=== PATIENT | female | born 1980 | race Caucasian/White ===

== ENCOUNTER 2020-07-02 10:25 | Outpatient (RCR) | payer BC, MEDICAID, SELFPAY ==
[2020-05-28 11:11] VITALS: BP 128/89; PULSE 102
[2020-06-04 12:07] VITALS: BP 131/92; PULSE 95
[2020-06-11 10:39] VITALS: BP 132/89; PULSE 96
[2020-06-18 12:08] VITALS: BP 133/90; PULSE 111
[2020-06-25 13:04] VITALS: BP 134/87; PULSE 86
--- NOTE | ~2020-07-02 | US_ITS ---
EXAMINATION: US OB limited w BPP DATE: 06/04/2020 11:56 INDICATION: Variable decelerations during third trimester TECHNIQUE: Real-time pelvic ultrasound was performed. The interpreting radiologist was not present fo r the study. COMPARISON: None. FINDINGS: There is a single living fetus in vertex presentation. The placenta is anterior. heart rate is 141 beats per minute (bpm). The amniotic fluid index is 7.8 cm which is low Biophysical profile performed by the technologist: breathing (30 sec sustained breathing in 30 minutes): 2 out of 2 movement (3 gross body movements in 30 minutes): 2 out of 2 tone (one episode of llszwqu-vjdqvmgcm-nfotazj limb movement): 2 out of 2 Amniotic fluid pocket (2 cm): 2 out of 2 Total score: 8 out of 8 IMPRESSION: 1. Single living fetus in vertex presentation. 2. Biophysical profile 8 out of 8. 3. Oligohydramnios. Reviewed, dictated and finalized at location A. K WORKER AND DELIVERER
--- NOTE | ~2020-07-02 | US_ITS ---
EXAMINATION: US OB BPP wo non-stress DATE: 07/02/2020 11:29 INDICATION: Decelerations. Chronic hypertension. Third trimester. TECHNIQUE: Real-time pelvic ultrasound was performed. COMPARISON: Ultrasound 06/05/2020 FINDINGS: There is a single living fetus in vertex presentation. The placenta is anterior. heart rate is 141 beats per minute (bpm). Biophysical profile performed by the technologist: breathing (30 sec sustained breathing in 30 minutes): 2 out of 2 movement (3 gross body movements in 30 minutes): 2 out of 2 tone (one episode of szgruym-qqyzvgunq-fpcfdji limb movement): 2 out of 2 Amniotic fluid pocket (2 cm): 2 out of 2 Total score: 8 out of 8 IMPRESSION: 1. Single living fetus in vertex presentation. 2. Biophysical profile 8 out of 8. Reviewed, dictated and finalized at location A. CARE AIDE
[2020-07-02 11:29] VITALS: BP 134/90; PULSE 98
== END 2020-07-08 07:52 | disposition home or self-care (01) ==
LOC: ANHOBOP 10:25
PROVIDERS: PCP Family Medicine Adolescent Medicine; Visit Provider Obstetrics & Gynecology
DX: O16.3 Unspecified maternal hypertension, third trimester (principal); O41.03X0 Oligohydramnios, third trimester, not applicable or unspecified; Z3A.32 32 weeks gestation of pregnancy; Z3A.33 33 weeks gestation of pregnancy; Z3A.34 34 weeks gestation of pregnancy; Z3A.35 35 weeks gestation of pregnancy; Z3A.36 36 weeks gestation of pregnancy; Z3A.37 37 weeks gestation of pregnancy
CPT/HCPCS: 59025; 76815; 76819

== ENCOUNTER 2020-07-07 04:50 | Inpatient (IN) | payer BC, SELFPAY ==
[2020-07-07] VITALS (77 sets, daily range): BP systolic 103–162; BP diastolic 67–106; PULSE 78–114; RESP 16–18; TEMP 36.6–37.6; O2SAT 98–100; BMI 29.7
--- NOTE | 2020-07-07 04:50 | OBADM ---
This patient, January Palma, admitted to the OB room Labor/Delivery/Recovery 105 for observation. Patient/family oriented to hospital policies and general routines including ID bracelet, bed and alarms, visiting hours, pain management, procedures, bathroom and other care routines, personal items, smoking policy, room service/diet, and visiting hours. Patient/Family are encouraged to report perceived risks to care and to ask questions if they do not understand what they are told or what they should do.
[2020-07-07 05:15] LABS: Basophils Percent Auto 0.5 % (0.2-1.2); Eosinophils Absolute Auto 0.2 K/mm3 (0-0.3); Eosinophils Percent Auto 2.3 % (0-4.4); Hematocrit 33.9 % (37.0-47.0); Hemoglobin 11.7 g/dL (12.0-15.0); Immature Granulocyte Absolute 0.15 K/mm3 (0.00-0.031); Immature Granulocyte Percent A 1.7 % (0-0.5); Lymphocytes Absolute Auto 1.36 K/mm3 (0.9-3.2); Lymphocytes Percent Auto 15.3 % (18.3-44.2); Mean Corpuscular HGB Conc 34.5 g/dl (32-36); Mean Corpuscular Hemoglobin 33.2 pg (26-34); Mean Corpuscular Volume 96.3 fl (80-100); Mean Platelet Volume 9.9 fl (7.4-10.4); Monocytes Absolute Auto 0.5 K/mm3 (0.1-0.6); Monocytes Percent Auto 5.2 % (2.6-8.5); Neutrophils Absolute Auto 6.7 K/mm3 (1.3-6.7); Platelet Count Result 99 k/mm3 (150-375); Red Blood Count 3.52 M/mm3 (4.2-5.4); Red Cell Distribution Width 14.3 % (11.5-14.5); White Blood Count 8.9 K/mm3 (4.5-10.0)
[2020-07-07] MEDS: LACTATED RINGERS 1,000 ML 125 ML IV CONT ×2 (05:19→08:17)
[2020-07-07] MEDS: OXYTOCIN 30 UNITS/NS 500 ML 30 UNITS/500 ML BAG IV CONT (05:20)
[2020-07-07 05:28] LABS: Alanine Aminotransferase 16 U/L (4-35); Albumin Level 3.3 g/dL (3.5-5.1); Alkaline Phosphatase 93 U/L (38-126); Anion Gap 7 mmol/L (8-16); Aspartate Amino Transferase 19 U/L (14-36); Bilirubin,Total 0.3 mg/dL (0.2-1.3); Blood Urea Nitrogen 7 mg/dL (7-17); Calcium 8.1 mg/dL (8.4-10.2); Carbon Dioxide 22 mmol/L (22-30); Chloride 106 mmol/L (98-107); Estimated CRCL calculation 122 ml/min; Estimated Glomerular Filt Rate > 60; Glucose 141 mg/dL (65-105); Potassium 3.5 mmol/L (3.4-5.0); Sodium 135 mmol/L (137-145); Uric Acid 2.4 mg/dL (2.5-7.5)
[2020-07-07] MEDS: LABETALOL HCL 100 MG TABLET 200 MG PO (05:49)
--- NOTE | 2020-07-07 05:49 | PM.IMHP ---
H&P: HPI History of Present Illness Date/Time: 07/07/20 05:49 4 para 2 whose last menstrual period was 2019, EDC is 07/20/2020, confirmed by 6 week ultrasound presents at 38 weeks gestation for induction of labor. She has had worsening blood [place] [address] [place]. There has been good testing with reassuring signs. Chief Complaint: 38 week with gestational hypertension and thrombocytopenia Review of Systems Review of Systems: All systems reviewed & are unremarkable except as noted in HPI and below PMFSH Family History Family History Father Hypertension Social History Social History Smoking status: Never smoker Substance use: never Spiritual care concerns: No Meds Home Medications and Allergies Home Medications Medication Instructions Recorded Confirmed Type PNV cmb#95-ferrous fumarate-FA 1 tablet PO DAILY 05/28/20 07/07/20 History [] docusate sodium [Colace] 100 mg PO DAILY PRN 05/28/20 07/07/20 History labetalol 200 mg PO TID 05/28/20 07/07/20 History nifedipine [Procardia XL] 60 mg PO DAILY 05/28/20 07/07/20 History Allergies Allergy/AdvReac Type Severity Reaction Status Date / Time No Known Allergies Allergy Verified 05/28/20 10:45 Vital Signs Vital Signs - 24 hr 07/07/20 05:15 07/07/20 05:24 07/07/20 05:31 Temperature 98 F Pulse Rate 97 91 Blood Pressure 151/104 H 148/97 H 07/07/20 05:46 Temperature Pulse Rate 100 Blood Pressure 162/99 H Exam Const: General: no acute distress Eyes: General: appearance normal, both eyes and all related structures Neck: Neck: supple and no JVD Thyroid: thyroid normal Resp: Effort & Inspection: normal respiratory effort Auscultation: clear to auscultation bilaterally Cardio: Rate: regular rate Rhythm: regular rhythm GI: Inspection: non-distended GI Palp: Yes Soft to palpation, No Tenderness to palpation present (GI) and No Guarding due to palpation present (GI) Auscultation: normal bowel sounds : External Female Exam: normal external appearance Speculum Exam - Vagina: normal appearance of the vagina Speculum Exam - Cervix: normal appearance of the cervix ( Cervix 3cm by nurse exam. FHTs reassuring) Skin: General skin exam: no rashes or lesions noted Extrem: General: normal to inspection and no edema Psych: Mental Status: mental status grossly normal Affect: normal affect H&P: Results Labs Labs: Short CBC 07/07/20 Range/Units 05:09 WBC 8.9 (4.5-10.0) K/mm3 Hgb 11.7 L (12.0-15.0) g/dL Hct 33.9 L (37.0-47.0) % Plt Count 99 L (150-375) k/mm3 BMP 07/07/20 05:08 Sodium 135 L Potassium 3.5 Chloride 106 Carbon Dioxide 22 BUN 7 Creatinine 0.60 L Glucose 141 H Calcium 8.1 L Liver Function 07/07/20 Range/Units 05:08 Total Bilirubin 0.3 (0.2-1.3) mg/dL AST 19 (14-36) U/L ALT 16 (4-35) U/L Alkaline Phosphatase 93 (38-126) U/L Albumin 3.3 L (3.5-5.1) g/dL Assessment and Plan Additional Plan impression: 38 week with elevated blood pressures and thrombocytopenia Plan: Medical lateral labor. Spontaneous vaginal delivery is expected
--- NOTE | 2020-07-07 06:32 | WPDANESEPP ---
Anes - Eval Pre Procedure Procedure: Labor epidural Date/Time: 07/07/20 06:32 Surgeon: jen Preop Diagnosis: pain during labor Pre Op Diagnosis: Induction of Labor Patient Data Age: 39 Gender: F Height: 1.7 m Weight: 86 kg Last Vital Signs Temp 36.6 C 07/07/20 05:15 Pulse 99 07/07/20 06:31 BP 136/97 H 07/07/20 06:31 Allergies Allergy/AdvReac Type Severity Reaction Status Date / Time No Known Allergies Allergy Verified 05/28/20 10:45 Home Medications Medication Instructions Recorded Confirmed Type PNV cmb#95-ferrous fumarate-FA 1 tablet PO DAILY 05/28/20 07/07/20 History [] docusate sodium [Colace] 100 mg PO DAILY PRN 05/28/20 07/07/20 History labetalol 200 mg PO TID 05/28/20 07/07/20 History nifedipine [Procardia XL] 60 mg PO DAILY 05/28/20 07/07/20 History Laboratory Tests 07/07/20 07/07/20 07/07/20 05:08 05:08 05:09 WBC 8.9 K/mm3 K/mm3 (4.5-10.0) RBC 3.52 M/mm3 L M/mm3 (4.2-5.4) Hgb 11.7 g/dL L g/dL (12.0-15.0) Hct 33.9 % L % (37.0-47.0) MCV 96.3 fl fl (80-100) MCH 33.2 pg pg (26-34) MCHC 34.5 g/dl g/dl (32-36) RDW 14.3 % % (11.5-14.5) Plt Count 99 k/mm3 L k/mm3 (150-375) MPV 9.9 fl fl (7.4-10.4) Immature Gran % (Auto) 1.7 % H % (0-0.5) Neut % (Auto) 75.0 % H % (45.5-73.1) Lymph % (Auto) 15.3 % L % (18.3-44.2) Divide % (Auto) 5.2 % % (2.6-8.5) Eos % (Auto) 2.3 % % (0-4.4) Baso % (Auto) 0.5 % % (0.2-1.2) Lymph # (Auto) 1.36 K/mm3 K/mm3 (0.9-3.2) Divide # (Auto) 0.5 K/mm3 K/mm3 (0.1-0.6) Eos # (Auto) 0.2 K/mm3 K/mm3 (0-0.3) Baso # (Auto) 0.0 K/mm3 K/mm3 (0.0-0.1) Abs Immat Gran (auto) 0.15 K/mm3 H K/mm3 (0.00-0.031) Absolute Neuts (auto) 6.7 K/mm3 K/mm3 (1.3-6.7) Absolute Nucleated RBC 0.0 K/mm3 K/mm3 (0.0-0.012) Nucleated RBC % 0.0 % % (0.0-0.2) Sodium 135 mmol/L L mmol/L (137-145) Potassium 3.5 mmol/L mmol/L (3.4-5.0) Chloride 106 mmol/L mmol/L (98-107) Carbon Dioxide 22 mmol/L mmol/L (22-30) Anion Gap 7 mmol/L L mmol/L (8-16) BUN 7 mg/dL mg/dL (7-17) Creatinine 0.60 mg/dL L mg/dL (0.7-1.0) Estim Creat Clear Calc 122 ml/min ml/min Estimated GFR > 60 (59 - ) Glucose 141 mg/dL H mg/dL (65-105) Uric Acid 2.4 mg/dL L mg/dL (2.5-7.5) Calcium 8.1 mg/dL L mg/dL (8.4-10.2) Total Bilirubin 0.3 mg/dL mg/dL (0.2-1.3) AST 19 U/L U/L (14-36) ALT 16 U/L U/L (4-35) Alkaline Phosphatase 93 U/L U/L (38-126) Total Protein 6.0 g/dL L g/dL (6.3-8.2) Albumin 3.3 g/dL L g/dL (3.5-5.1) RPR Blood Type B Positive Antibody Screen Negative 07/07/20 05:09 WBC RBC Hgb Hct MCV MCH MCHC RDW Plt Count MPV Immature Gran % (Auto) Neut % (Auto) Lymph % (Auto) Divide % (Auto) Eos % (Auto) Baso % (Auto) Lymph # (Auto) Divide # (Auto) Eos # (Auto) Baso # (Auto) Abs Immat Gran (auto) Absolute Neuts (auto) Absolute Nucleated RBC Nucleated RBC % Sodium Potassium Chloride Carbon Dioxide Anion Gap BUN Creatinine Estim Creat Clear Calc Estimated GFR Glucose Uric Acid Calcium Total Bilirubin AST ALT Alkaline Phosphatase Total Protein Albumin RPR Pending Blood Type Antibody Screen Patient hx anesthesia problems: none Family hx anesthesia problems: none PMFSH Past Medical History Medical His
[2020-07-07 07:17] LABS: Rapid Plasma Reagin Non-Reactive (NonReactive)
--- NOTE | 2020-07-07 11:31 | PM.OBPRVD ---
OB - Delivery Note Procedure Delivery date: 07/07/20 Procedure: mil events: Pre-Eclampsia Intrapartal events: None Induction method: AROM Delivery augmentation: pitocin Delivery monitor: external FHT Route of delivery: Episiotomy description: None Laceration Description: None Specimen: No Quantitative Blood Loss (ml): 58 Anesthesia type: Epidural Disposition: floor [place] Baby Date of : 07/07/20 Time of : 11:02 Weeks of gestation at delivery: 38 gender: Male presentation: vertex position: Right Occiput Anterior Placenta delivery description: Spontaneous cord vessel description: 3 Vessels and Nuchal Cord score one minute: 7 score five minutes: 9
[2020-07-07] MEDS: OXYTOCIN 30 UNITS/NS 500 ML 30 UNITS/500 ML BAG 125 UNITS IV CONT (11:39)
[2020-07-07] MEDS: miSOPROStol 200 MCG TABLET 800 MCG RECTAL (12:56)
--- NOTE | 2020-07-07 15:15 | PC.NURSE ---
Patient transferred to post room #286 per wheelchair from labor and delivery. Support person present. Oriented to unit, room, information board, rooming in, admission packet and security measures. Patient verbalizes understanding.
[2020-07-07] MEDS: IBUPROFEN 600 MG TABLET PO (15:29)
[2020-07-07] MEDS: ACETAMINOPHEN 325 MG TABLET 650 MG PO (19:20)
[2020-07-08] VITALS: BP 150/90; PULSE 93; RESP 16; TEMP 37; O2SAT 98
[2020-07-08] MEDS: IBUPROFEN 600 MG TABLET PO ×2 (00:06→08:46)
[2020-07-08 05:20] VITALS: BP 142/95; PULSE 80; RESP 16; TEMP 36.9; O2SAT 99
[2020-07-08] MEDS: ACETAMINOPHEN 325 MG TABLET 650 MG PO (05:23)
[2020-07-08 05:31] LABS: Hemoglobin 10.7 g/dL (12.0-15.0)
[2020-07-08 07:35] VITALS: BP 150/91; PULSE 94; RESP 18; TEMP 37; O2SAT 99
--- NOTE | 2020-07-08 07:51 | PM.OBPNVD ---
OB - PN: Subj Subjective Date/time seen: 07/08/20 07:51 Patient comments: no complaints and pain well controlled baby status: doing well and nursing well OB - PN: Obj Data Labs CBC & Chem 7: 07/08/20 05:07 07/07/20 05:08 Labs: Laboratory Results - last 24 hr 07/08/20 05:07 Hgb 10.7 L Hct 31.0 L OB - PN A/P Plan day: 1 Plan: routine care Time Spent With Patient Time: Total time spent is greater than 50% in coordination of care (as documented) at patient's floor/unit and/or counseling patient: Time with patient: less than 15 minutes Review of Systems Review of Systems: All systems reviewed & are unremarkable except as noted in HPI and below Exam Const: General: no acute distress Eyes: General: appearance normal, both eyes and all related structures Neck: Neck: supple and no JVD Thyroid: thyroid normal Resp: Effort & Inspection: normal respiratory effort Auscultation: clear to auscultation bilaterally Cardio: Rate: regular rate Rhythm: regular rhythm GI: Inspection: non-distended GI Palp: Yes Soft to palpation, No Tenderness to palpation present (GI) and No Guarding due to palpation present (GI) Auscultation: normal bowel sounds : General: Yes bladder normal to palpation External Female Exam: normal external appearance Speculum Exam - Vagina: normal vaginal discharge and No vaginal bleeding Speculum Exam - Cervix: nontender Bimanual exam- vagina & uterus: bladder normal to palpation and No Cervical tenderness present OB/external & speculum: No vaginal bleeding Skin: General skin exam: no rashes or lesions noted Extrem: General: normal to inspection and no edema Psych: Mental Status: mental status grossly normal Affect: normal affect
--- NOTE | 2020-07-08 08:08 | PM.DS ---
DS: Admitting Diagnosis Admitting Diagnosis Admitting Diagnosis: term iup htn DS: Summary Hospital Course Hospital Course: The patient was admitted for induction of labor secondary to elevated blood pressures. She underwent spontaneous vaginal delivery with an epidural. She remained afebrile through her stay . She required no further blood pressure medication. Time Spent with Patient Time attestation: Total time spent providing and/or coordinating discharge services: Exam Const: General: no acute distress Eyes: General: appearance normal, both eyes and all related structures Neck: Neck: supple and no JVD Thyroid: thyroid normal Resp: Effort & Inspection: normal respiratory effort Auscultation: clear to auscultation bilaterally Cardio: Rate: regular rate Rhythm: regular rhythm GI: Inspection: non-distended GI Palp: Yes Soft to palpation, No Tenderness to palpation present (GI) and No Guarding due to palpation present (GI) Auscultation: normal bowel sounds : General: Yes bladder normal to palpation External Female Exam: normal external appearance Speculum Exam - Vagina: normal vaginal discharge and No vaginal bleeding Speculum Exam - Cervix: nontender Bimanual exam- vagina & uterus: bladder normal to palpation and No Cervical tenderness present OB/external & speculum: No vaginal bleeding Skin: General skin exam: no rashes or lesions noted Extrem: General: normal to inspection and no edema Psych: Mental Status: mental status grossly normal Affect: normal affect DS: Data Data Completed and Pending Labs on day of discharge: Labs from last 24 hours 07/08/20 05:07 Hgb 10.7 L Hct 31.0 L Discharge Plan Discharge Attending physician on discharge: Jeremy Rodriguez Discharging Clinician: Jeremy Rodriguez Patient Disposition: Home, Self-Care Activity: may shower and pelvic rest Diet: heart healthy Patient Instructions: Antibiotic Form Stand Alone Forms: General Discharge Information Follow-up/Referrals: Jeremy Rodriguez MD [Physician] - Discharge Medications: Continued labetalol 200 mg Tablet 200 mg PO TID RF: 0 nifedipine [Procardia XL] 30 mg Tablet Extended Release 24hr 60 mg PO DAILY RF: 0 docusate sodium [Colace] 100 mg Capsule 100 mg PO DAILY PRN (Reason: Constipation) RF: 0 PNV cmb#95-ferrous fumarate-FA [] 28 mg iron- 800 mcg Tablet 1 tablet PO DAILY RF: 0 Date of admission: 07/07/20 04:50 Primary Care Provider: Fitz Martínez Admitting Provider: Jeremy Rodriguez Attending physician on admission: Jeremy Rodriguez Condition: Stable
[2020-07-08] MEDS: DOCUSATE SODIUM 100 MG CAPSULE PO (08:46)
--- NOTE | 2020-07-08 09:02 | WPDANLDPN2 ---
Anes-Prog Note L&D Date/Time: 07/08/20 09:02 Comfortable throughout: labor and delivery Neuraxial method: epidural Epidural/Spinal procedure site: clean & non-tender Neuro status: Neuro function grossly intact. Cardiovascular status: normal Respiratory status: normal Airway patency: baseline Mental status: baseline Post-Op hydration status: normal Vital Signs: Last Vital Signs Temp 37.0 C 07/08/20 07:35 Pulse 94 07/08/20 07:35 Resp 18 07/08/20 07:35 BP 150/91 H 07/08/20 07:35 Pulse Ox 99 07/08/20 07:35 Pain score (VAS): 0/10. Patient resting in bed at time of assessment, appears comfortable. Support person at bedside. I/O: Intake & Output 07/07/20 07/08/20 07/08/20 23:59 07:59 15:59 Intake Total 860 Output Total 300 Balance 560 Post-procedural complaints: none Patient feedback: Patient satisfied with anesthetic care.
--- NOTE | 2020-07-08 10:15 | PC.NURSE ---
Consult with pt., mother reports this is third child to breastfeed, last child is 12 yrs old. Mother states has been eager to feed at times, spitty during the night and last feeding was much better. Mother reports tenderness with feedings. Reviewed feeding cues, frequencies, duration of feedings, feeding elimination flow sheet, and signs of adequate intake. Demonstrated stimulation techniques to wake for feeding. Assisted with to breast. Reviewed positioning/alignment cross cradle, holding breast in U hold and guided asymmetrical latch on. Infant was sleepy, several attempts made. Infant just returned from circumcision, suggested skin to skin and attempt again in 30 minutes.
--- NOTE | 2020-07-08 11:00 | PC.NURSE ---
. Demonstrated stimulation techniques to wake for feeding. unwrapped and slight stimulation, easily awoken with feeding cues noted. Assisted with infant to breast. Reviewed positioning/alignment in cross cradle, holding breast in U hold and guided asymmetrical latch on. Infant was able to latch correctly within a few attempts. nursed eagerly, with steady draws and frequent swallowing noted. Reviewed signs of a correct latch, effective nursing and suck swallow ratio. was able to maintain latch. Mother reported tenderness at times, infant had slipped to shallow latch. Demonstrated how to adjust latch more deeply while feeding. Mother quickly reports she has been using the cradle position and can feel infant is latched more deeply and has minimal tenderness. Suggested to stimulate infant while feeding to keep awake and nursing effectively for increased stimulation and increased intake. Instructed mother to call out for RN assistance if she is unable to latch infant for feeding or she has discomfort with nursing. Instructed feeding should be initiated three hours from start of last feeding or if feeding cues are noted before. Mother voiced understanding of information shared.
[2020-07-08] MEDS: TETANUS,DIPHTHERIA,AC PERTUSSIS ADULT (0.5 ML) BOOSTRIX IM (15:19)
[2020-07-09 09:02] VITALS: BP 158/108; PULSE 105; RESP 20; TEMP 37.1; O2SAT 99
== END 2020-07-08 15:35 | disposition home or self-care (01) | DRG 560 ==
LOC: ANHLDR 04:52 → ANHOB2 15:59
PROVIDERS: Admitting Provider Obstetrics & Gynecology; PCP Family Medicine Adolescent Medicine; Visit Provider Obstetrics & Gynecology
DX: O11.4 Pre-existing hypertension with pre-eclampsia, complicating childbirth (principal); Z37.0 Single live birth; Z3A.38 38 weeks gestation of pregnancy; O99.12 Other diseases of the blood and blood-forming organs and certain disorders involving the immune mechanism complicating childbirth; D69.6 Thrombocytopenia, unspecified; O69.81X0 Labor and delivery complicated by cord around neck, without compression, not applicable or unspecified; O36.8330 Maternal care for abnormalities of the fetal heart rate or rhythm, third trimester, not applicable or unspecified
CPT/HCPCS: 36415; 80053; 84550; 85014; 85018; 85025; 86592; 86850; 86900; 86901; 90715; A9270; J2210; J2590; J2795; J7120

== ENCOUNTER 2020-07-18 00:53 | Day surgery (SDC) | payer BC, SELFPAY ==
[2020-07-17 14:44] VITALS: BMI 27.3
--- NOTE | 2020-07-17 15:25 | PM.IMHP ---
H&P: HPI History of Present Illness Date/Time: 07/17/20 15:25 Patient recently delivered and is having bleeding. She notes passing clots and heavy bleeding. She has been dizzy as well she is admitted for suction dilatation curettage. Risks and benefits were reviewed Chief Complaint: pp bleeding Review of Systems Review of Systems: All systems reviewed & are unremarkable except as noted in HPI and below PMFSH Past Medical History Medical History IUP (intrauterine ), incidental PIH ( induced hypertension) Family History Family History Father Hypertension Social History Social History Smoking status: Former smoker Second hand tobacco smoke exposure: No Alcohol intake: never Substance use: never Substance use type: does not use Living arrangements: with family Spiritual care concerns: No Meds Home Medications and Allergies Home Medications Medication Instructions Recorded Confirmed Type PNV cmb#95-ferrous fumarate-FA 1 tablet PO DAILY 05/28/20 07/17/20 History [] docusate sodium [Colace] 100 mg PO DAILY PRN 05/28/20 07/17/20 History labetalol 200 mg PO BID 05/28/20 07/17/20 History Allergies Allergy/AdvReac Type Severity Reaction Status Date / Time No Known Allergies Allergy Verified 07/17/20 14:43 Exam Const: General: no acute distress Eyes: General: appearance normal, both eyes and all related structures Neck: Neck: supple and no JVD Thyroid: thyroid normal Resp: Effort & Inspection: normal respiratory effort Auscultation: clear to auscultation bilaterally Cardio: Rate: regular rate Rhythm: regular rhythm GI: Inspection: non-distended GI Palp: Yes Soft to palpation, No Tenderness to palpation present (GI) and No Guarding due to palpation present (GI) Auscultation: normal bowel sounds : General: Yes bladder normal to inspection External Female Exam: normal external appearance Speculum Exam - Vagina: vaginal bleeding Speculum Exam - Cervix: Cervical os open Bimanual exam- vagina & uterus: enlarged Skin: General skin exam: no rashes or lesions noted Extrem: General: normal to inspection and no edema Psych: Mental Status: mental status grossly normal Affect: normal affect Assessment and Plan Additional Plan impression: bleeding Plan: Suction dilatation and curettage
--- NOTE | 2020-07-18 06:47 | WPDHPUPDATE1 ---
History and Physical Update Update Date/Time: 07/18/20 06:47 History and Physical has been reviewed, including an updated exam of the patient. There are NO changes in the patient's condition. Risks, benefits, and alternatives have been discussed and questions answered. Patient agrees to proceed with procedure.
--- NOTE | 2020-07-18 08:22 | ECG_ITS ---
Measurements Intervals [place] Rate: 85 P: 53 IN: 151 QRS: 38 QRSD: 94 T: 38 QT: 370 QTc: 440 Interpretive Statements SINUS RHYTHM INCOMPLETE RIGHT BUNDLE BRANCH BLOCK BORDERLINE ECG Electronically Signed On 07-18-2020 9:11:00 CDT by Billy Suárez D.O.
[2020-07-18 08:48] VITALS: BP 143/96; PULSE 99; RESP 16; TEMP 36.6; O2SAT 96
[2020-07-18] MEDS: ACETAMINOPHEN 500 MG TABLET 1000 MG PO (09:11)
[2020-07-18] MEDS: LACTATED RINGERS 1,000 ML 30 ML IV CONT (09:23)
[2020-07-18 09:31] LABS: Hematocrit 37.2 % (37.0-47.0); Hemoglobin 12.7 g/dL (12.0-15.0)
--- NOTE | 2020-07-18 09:57 | WPDANESEPPF ---
Anes - Initial Pre Proc Eval Procedure: Operation Date: 07/18/20 10:30 Proposed Procedures p Suction Dilatation and Curettage - Jeremy Rodriguez MD Date/Time: 07/18/20 09:57 Surgeon: Jeremy Rodriguez MD Pre Op Diagnosis: post bleeding Patient Data Age: 39 Gender: F Height: 1.7 m Weight: 76.8 kg Last Vital Signs Temp 36.6 C 07/18/20 08:48 Pulse 99 07/18/20 08:48 Resp 16 07/18/20 08:48 BP 143/96 H 07/18/20 08:48 Pulse Ox 96 07/18/20 08:48 Allergies Allergy/AdvReac Type Severity Reaction Status Date / Time No Known Allergies Allergy Verified 07/18/20 08:57 Home Medications Medication Instructions Recorded Confirmed Type PNV cmb#95-ferrous fumarate-FA 1 tablet PO DAILY 05/28/20 07/18/20 History [] docusate sodium [Colace] 100 mg PO DAILY PRN 05/28/20 07/18/20 History labetalol 200 mg PO BID 05/28/20 07/18/20 History cephalexin 500 mg PO Q12H 07/18/20 07/18/20 History hydrocodone-acetaminophen 1 tablet PO Q6H PRN #14 tablet 07/18/20 Rx Laboratory Tests 07/18/20 08:55 Hgb 12.7 g/dL g/dL (12.0-15.0) Hct 37.2 % % (37.0-47.0) Patient hx anesthesia problems: none Family hx anesthesia problems: none PMFSH Past Medical History Medical History (Updated 07/18/20 @ 09:57 by Selvin Sandhu DO) Anemia Hypertension IUP (intrauterine ), incidental Family History Family History Father Hypertension Social History Social History Smoking status: Former smoker Second hand tobacco smoke exposure: No Alcohol intake: never Substance use: never Substance use type: does not use Living arrangements: with family Spiritual care concerns: No Anes - Eval Final PreProcedure Day of Procedure 07/18/20 09:57 Patient weight: overweight Heart: regular rate and rhythm Lungs: clear to auscultation and normal air movement Airway: Mallampati scale class II Neurological: alert and oriented Last oral intake: >/= 8 hours ASA classification: II Emergent: no Anesthetic plan: proceed Anesthesia type and monitoring: general GIVS and standard monitoring Informed Consent: The patient's anesthetic plan and its attendant risks and benefits were discussed with the patient/family/POA. Questions were solicited and answers provided to the satisfaction of the patient/family/POA.
--- NOTE | 2020-07-18 10:56 | PM.PROC ---
Procedure Note - Detailed Date of procedure: 07/18/20 Pre-op diagnosis: post bleeding Surgeon: Jeremy Rodriguez MD Postop diagnosis: bleeding Procedure: Suction dilatation curettage Anesthesia: IV sedation local EBL: 25cc Findings: Retained tissue Complications: None Description of procedure: The patient was prepped draped in normal sterile fashion placed in the dorsal lithotomy position. Under excellent IV sedation weighted speculum placed in posterior fornix vagina. Anterior lip grasped with a single-tooth tenaculum. 2.5cc of lidocaine 1% was placed. The uterus sounded to 12cm. Serial dilatation with fragmented dilators performed followed by passage of the 10. Suction curette removing a moderate amount of chunky placental tissue. When a good grating sound was heard the instruments were removed. All sponge, needle, instrument counts were correct. There were no immediate complications
[2020-07-18 11:05] VITALS: BP 136/84; PULSE 78; RESP 16; O2SAT 100
[2020-07-18 11:30] VITALS: BP 156/97; PULSE 67; RESP 20
[2020-07-18 12:00] VITALS: BP 159/90; PULSE 68; RESP 14
== END 2020-07-18 12:15 | disposition home or self-care (01) ==
PROVIDERS: PCP Family Medicine Adolescent Medicine; Visit Provider Obstetrics & Gynecology
PROC: (CPT 59160; principal; 2020-07-18 10:30)
DX: O72.2 Delayed and secondary postpartum hemorrhage (principal); Z87.891 Personal history of nicotine dependence
CPT/HCPCS: 59160; 36415; 85014; 85018; 88305; 88307; 93005; A9270; J2250; J2405; J2704; J3010; J7120

== ENCOUNTER 2022-01-11 13:28 | Outpatient (CLI) | payer OTHER, SELFPAY ==
--- NOTE | 2022-01-11 13:30 | ECG_ITS ---
Measurements Intervals [place] Rate: 79 P: 54 NJ: 153 QRS: 55 QRSD: 98 T: 50 QT: 376 QTc: 433 Interpretive Statements SINUS RHYTHM BASELINE ARTIFACT- I, II, III, AVR, AVL, AVF, V4-V6 BORDERLINE ECG COMPARED TO ECG 07/18/2020 09:06:52 NO SIGNIFICANT CHANGES Electronically Signed On 01-11-2022 14:04:28 CDT by Billy Suárez D.O.
== END 2022-01-11 13:29 | disposition home or self-care (01) ==
LOC: ANHSURGERY 13:38
PROVIDERS: PCP Family Medicine Adolescent Medicine; Visit Provider Obstetrics & Gynecology
DX: Z01.818 Encounter for other preprocedural examination (principal); I10 Essential (primary) hypertension; R10.2 Pelvic and perineal pain
CPT/HCPCS: 36415; 86850; 86900; 86901; 93005

== ENCOUNTER 2022-01-15 00:42 | Day surgery (SDC) | payer OTHER, SELFPAY ==
[2022-01-08 09:27] VITALS: BMI 27.6
--- NOTE | 2022-01-08 09:33 | PC.NURSE ---
Report to the Outpatient Waiting Room, entrance under the green pavilion located off [facility], at time 0630__ on date 01/15/22_. OR Time: _0830_. Time changes happen often and if your time is changed the preop area will call you the afternoon before. - You and your visitor will be asked to self-screen and do not enter if you have any COVID symptoms. - Only one visitor and NO children visitors are allowed at this time. - The patient visitor is requested to leave or wait in car when not with patient due to restrictions. - A mask is required within the hospital. Patients may have clear liquids (water, carbonated beverages, clear teas, apple juice) until 3 hours prior to surgery with a maximum of 20 ounces. - No food from midnight until time of surgery - Infants may have breast milk until 4 hours before surgery, infant formula 6 hours prior to surgery. - Children will be allowed to drink immediately following surgery. If applicable, please bring a bottle or sippy cup to assist with drinking. Juice, water, soda, and popsicles are readily available. For infants on formula, please bring formula the day of surgery. Pacifiers are allowed. Take the following medications with a SIP of water the morning of surgery: LABETALOL, PAIN PILL IF NEEDED Medications to discontinue per physician NONE Date to take last dose Please no make-up, nail lithuanian, hairspray, perfume, deodorant, or body powder the day of surgery. No jewelry (including any body piercings) or valuables the day of surgery, leave them at home. Please take a shower or bath the night before, or the morning of, surgery with an antibacterial soap. Wear comfortable, loose fitting clothing. Children are encouraged to wear pajamas. - Jewelry must be removed prior to entering the operating room. Rings and piercings that are not removed may be cut off. - The hospital will not accept responsibility for valuables. - Please leave all valuables, including medications, at home the day of surgery. If you are going home after surgery, a licensed milk tanker driver must drive you home. - NO public transportation without another adult. - We recommend that an adult stay with you for 24 hours following discharge. - We also recommend that you do not drive, make important decision, drink alcoholic beverages, or take any drugs that were not prescribed by your health care provider for at least 24 hours after your discharge time. For Pediatric surgeries, we recommend two adults accompany the child home (only one inside the building at this time). Follow any additional instructions given to you from your surgeon. If you or anyone in your household have experienced Covid symptoms in the past week, please notify your surgeon or the nurse liaison at the phone number below for possible testing. Telephone instructions given to PATIENT_and asked if any additional questions and then verbalized understanding. Patient advised to call surgeon office or pre surgery nurse liaison [phone] if any additional questions.
--- NOTE | 2022-01-13 12:07 | PM.IMHP ---
H&P: HPI History of Present Illness Date/Time: 01/13/22 12:07 Chief Complaint: pelvic pain Narrative: say 5-year-old female admitted for laparoscopy secondary to pelvic pain. She had pain dyspareunia postcoital bleeding. Risks and benefits reviewed including not exclusive of , aspiration, bleeding, transfusion, perforation injury to bowel, bladder, ureters, or other internal organs with the need for open laparotomy. She received the ACOG handout entitled laparoscopy. She had all questions answered. She has received [facility] Past Medical History Medical History Anemia Hypertension IUP (intrauterine ), incidental Family History Family History Father Hypertension Social History Social History Smoking status: Never smoker Second hand tobacco smoke exposure: No Alcohol intake: current Drinks per week: 1 Substance use: never Substance use type: does not use Spiritual care concerns: No Meds Home Medications and Allergies Home Medications Medication Instructions Recorded Confirmed Type labetalol 200 mg tablet 200 mg PO BID 05/28/20 01/08/22 History acetaminophen 300 mg-codeine 30 mg 1 tablet PO PRN PAIN 01/08/22 01/08/22 History tablet doxycycline hyclate 100 mg capsule 100 mg PO BID 01/08/22 01/08/22 History Allergies Allergy/AdvReac Type Severity Reaction Status Date / Time No Known Allergies Allergy Verified 01/08/22 09:23 Exam Const: General: cooperative, healthy appearing and comfortable Nutritional Appearance: average body habitus Orientation/consciousness: oriented to person, oriented to place and oriented to time Chest: Chest palpation & inspection: normal inspection of the chest Resp: Effort & Inspection: normal respiratory effort Cardio: Rate: regular rate Rhythm: regular rhythm Heart sounds: S1 normal heart sound present and S2 normal heart sound present GI: Inspection: normal to inspection Auscultation: normal bowel sounds : Speculum Exam - Cervix: normal appearance of the cervix Bimanual exam- vagina & uterus: enlarged Bimanual Exam- Adnexa, other: tender Assessment and Plan Assessment and plan (1) Pelvic pain: Code(s): R10.2 - Pelvic and perineal pain Status: Acute Plan laparoscopy.
[2022-01-15] VITALS (12 sets, daily range): BP systolic 136–159; BP diastolic 90–114; PULSE 63–89; RESP 12–16; TEMP 36.1–36.8; O2SAT 96–100
--- NOTE | 2022-01-15 06:17 | WPDHPUPDATE1 ---
History and Physical Update Update Date/Time: 01/15/22 06:17 History and Physical has been reviewed, including an updated exam of the patient. There are NO changes in the patient's condition. Risks, benefits, and alternatives have been discussed and questions answered. Patient agrees to proceed with procedure.
--- NOTE | 2022-01-15 07:09 | P.PNAN_ITS ---
Anes - Initial Pre Proc Eval Procedure: Operation Date: 01/15/22 08:30 Proposed Procedures p Diagnostic Laparoscopy, Hysteroscopy Dilatation and Curettage - Jeremy Hebert MD Date/Time: 01/15/22 07:09 Surgeon: Jeremy Hebert MD Pre Op Diagnosis: pelvic pain, post coital bleeding Patient Data Age: 41 Gender: F Height: 1.7 m Weight: 80 kg Allergies Allergy/AdvReac Type Severity Reaction Status Date / Time No Known Allergies Allergy Verified 01/08/22 09:23 Home Medications Medication Instructions Recorded Confirmed Type labetalol 200 mg tablet 200 mg PO BID 05/28/20 01/08/22 History acetaminophen 300 mg-codeine 30 mg 1 tablet PO PRN PAIN 01/08/22 01/08/22 History tablet doxycycline hyclate 100 mg capsule 100 mg PO BID 01/08/22 01/08/22 History hydrocodone 5 mg-acetaminophen 325 1 tablet PO Q4H PRN pain #30 tabs 01/15/22 Rx mg tablet Patient hx anesthesia problems: none Family hx anesthesia problems: none Results Review: All pre-operative results and documents have been reviewed as part of the pre- operative evaluation. [facility] Past Medical History Medical History (Updated 01/15/22 @ 07:10 by Fabio Gatica MD) Anemia Hypertension IUP (intrauterine ), incidental Family History Family History Father Hypertension Social History Social History Smoking status: Never smoker Second hand tobacco smoke exposure: No Alcohol intake: current Drinks per week: 1 Substance use: never Substance use type: does not use Living arrangements: with family Spiritual care concerns: No Anes - Eval Final PreProcedure Day of Procedure 01/15/22 07:09 Patient weight: overweight Heart: regular rate and rhythm Lungs: clear to auscultation and normal air movement Airway: Mallampati scale class II Neurological: alert and oriented Last oral intake: >/= 8 hours ASA classification: II Emergent: no Anesthetic plan: proceed Anesthesia type and monitoring: general ETT and standard monitoring Results Review: All pre-operative results and documents have been reviewed as part of the pre- operative evaluation. Informed Consent: The patient's anesthetic plan and its attendant risks and benefits were discussed with the patient/family/POA. Questions were solicited and answers provided to the satisfaction of the patient/family/POA.
[2022-01-15] MEDS: LACTATED RINGERS 1,000 ML 30 ML IV CONT ×2 (07:13→09:20)
[2022-01-15] MEDS: ACETAMINOPHEN 500 MG TABLET 1000 MG PO (07:17)
[2022-01-15] MEDS: KETOROLAC 15 MG/ML VIAL (*BKC) IV PUSH (07:17)
--- NOTE | 2022-01-15 09:11 | W.PM.PROC2 ---
Procedure Note - Detailed Date of Procedure 01/15/22 Pre-op Diagnosis pelvic pain, post coital bleeding Post-op Diagnosis Same Procedure Performed Laparoscopy with lysis of adhesions /hysteroscopy/ dilatation curettage Surgeon Jeremy Hebert MD Anesthesia General Indications normal-appearing ovaries tubes uterus adhesions from the ovaries to lateral sidewalls Findings normal-appearing ovaries/tubes /uterus. Adhesions from the ovaries the lateral sidewalls Description of Procedure patient was prepped draped in the normal sterile fashion placed in the dorsal lithotomy position. Under excellent general trach anesthesia weighted speculum placed in posterior fornix vagina. Anterior lip of the cervix grasped with a single-tooth tenaculum. The Caraballo's cannula inserted to the cervix and attached to the single-tooth to be used later for the inability uterine manipulation. The bladder was drained of clear urine. The weighted speculum was removed. An infraumbilical incision made and Veress needle passed in the abdomen. Abdomen filled with CO2 gas to 15mm Hg. The 5mm trocar advanced under direct visualization assuring no injury. The patient placed in Trendelenburg and a suprapubic incision made. The 5mm trocar advanced under direct visualization assuring no injury. Adhesions were seen from the ovaries to the lateral sidewalls. These were sharply dissected using monopolar cautery. Irrigation was undertaken no clear. The remainder the pelvis appeared within normal limits and the gas removed from the abdomen. The lower site and upper site removed. The incisions closed with 4 Monocryl and glue. Attention was turned to the hysteroscopic portion the uterus sounded to 9cm. Serial dilatation with fragmented dilators performed followed by passage of the 5mm visualizing hysteroscope using normal saline as visualizing medium. Each fallopian tube os could be seen there was thick irregular endometrium this was scraped over the entire 360? until a good grating sound was heard this was then removed. The instruments were withdrawn. The patient went to recovery in satisfactory condition. All sponge, needle, instrument counts were correct. There were no immediate complications Estimated Blood Loss 5 Drains No Packing No Pathology Yes Complications No immediate complications Condition Stable Disposition PACU
[2022-01-15] MEDS: fentaNYL CITRATE INJ (*CRX) 100 MCG/2 ML VIAL 25 MCG IV PUSH ×4 (09:50→10:34)
[2022-01-15] MEDS: ONDANSETRON INJ 4 MG/2 ML VIAL IV PUSH (10:36)
[2022-01-15] MEDS: oxyCODONE HCL (*CRX) 5 MG TAB IR PO (11:00)
[2022-01-15] MEDS: SCOPOLAMINE 1.5 MG PATCH TRANSDERM (12:04)
[2022-01-15] MEDS: diphenhydrAMINE HCl INJ 50 MG/ML VIAL 25 MG IV PUSH (12:48)
--- NOTE | 2022-01-15 12:50 | SUR.PHASEII ---
pt c/o of chronic migraines, and currently has nausea. pt said her KHOURY is worse than her surgical site pain. neuro grosly intact. walked well to the bathroom well. denies any vision changes. pt was sensitive to light. this nurse called dr perry for medicine for nausea. pt was not due for tylenol and per pt ibu was contraindicated for her BP meds. pt was getting nauseated while she was getting dressed so this nurse got a verbal order for Benadryl.
== END 2022-01-15 13:18 | disposition home or self-care (01) ==
PROVIDERS: PCP Family Medicine Adolescent Medicine; Visit Provider Obstetrics & Gynecology
PROC: 0UDB8ZZ Extraction of Endometrium, Via Natural or Artificial Opening Endoscopic (ICD-10-PCS; CPT 58558; principal; 2022-01-15 08:30)
DX: R10.2 Pelvic and perineal pain (principal); N93.0 Postcoital and contact bleeding; N73.6 Female pelvic peritoneal adhesions (postinfective); N94.10 Unspecified dyspareunia; I10 Essential (primary) hypertension; Z79.891 Long term (current) use of opiate analgesic
CPT/HCPCS: 58660; 58558; 88305; A9270; J0330; J1100; J1200; J1885; J2250; J2405; J2704; J3010; J7030; J7120

== ENCOUNTER 2022-05-24 09:42 | Outpatient (CLI) | payer OTHER, SELFPAY ==
[2022-05-24 10:09] LABS: Basophils Absolute Auto 0.1 K/mm3 (0.0-0.1); Basophils Percent Auto 0.9 % (0.2-1.2); Eosinophils Absolute Auto 0.2 K/mm3 (0-0.3); Eosinophils Percent Auto 4.3 % (0-4.4); Hematocrit 41.5 % (37.0-47.0); Hemoglobin 14.2 g/dL (12.0-15.0); Immature Granulocyte Absolute 0.02 K/mm3 (0.00-0.031); Immature Granulocyte Percent A 0.4 % (0-0.5); Lymphocytes Absolute Auto 1.32 K/mm3 (0.9-3.2); Lymphocytes Percent Auto 23.9 % (18.3-44.2); Mean Corpuscular HGB Conc 34.2 g/dl (32-36); Mean Corpuscular Hemoglobin 32.9 pg (26-34); Mean Corpuscular Volume 96.1 fl (80-100); Mean Platelet Volume 9.8 fl (7.4-10.4); Monocytes Absolute Auto 0.4 K/mm3 (0.1-0.6); Monocytes Percent Auto 6.3 % (2.6-8.5); Neutrophils Absolute Auto 3.6 K/mm3 (1.3-6.7); Neutrophils Percent Auto 64.2 % (45.5-73.1); Platelet Count Result 179 k/mm3 (150-375); Red Blood Count 4.32 M/mm3 (4.2-5.4); Red Cell Distribution Width 12.1 % (11.5-14.5); White Blood Count 5.5 K/mm3 (4.5-10.0)
== END 2022-05-24 09:43 | disposition home or self-care (01) ==
LOC: ANHSURGERY 09:46
PROVIDERS: PCP Family Medicine Adolescent Medicine; Visit Provider Obstetrics & Gynecology
DX: R10.2 Pelvic and perineal pain (principal)
CPT/HCPCS: 36415; 85025; 86850; 86900; 86901

== ENCOUNTER 2022-05-28 01:57 | Day surgery (SDC) | payer OTHER, SELFPAY ==
--- NOTE | 2022-05-18 12:53 | SUR.PREOP ---
Report to the Outpatient Waiting Room, entrance under the green pavilion located off [facility], at time 0930 on date 05/28/22. Planned Procedure Time: 1130. Time changes happen often and if your time is changed the preop area will call you the afternoon before. - You and your visitor will be asked to self-screen and do not enter if you have any COVID symptoms. - Only one visitor is requested with a max of two and NO children visitors are allowed at this time. - The patient visitor may be requested to leave or wait in car when not with patient due to distancing restrictions. - A mask is optional within the hospital at this time. Patients may have clear liquids (water, carbonated beverages, clear teas, apple juice) until 3 hours prior to surgery with a maximum of 20 ounces. - No food from midnight until time of surgery - NO CLEAR LIQUIDS AFTER 0830 - Infants may have breast milk until 4 hours before surgery, infant formula 6 hours prior to surgery. - Children will be allowed to drink immediately following surgery. If applicable, please bring a bottle or sippy cup to assist with drinking. Juice, water, soda, and popsicles are readily available. For infants on formula, please bring formula the day of surgery. Pacifiers are allowed. Take the following medications with a SIP of water the morning of surgery: MAY TAKE TYLENOL WITH CODEINE IF NEEDED DO NOT STOP ANY OF YOUR OTHER PRESCRIPTION MEDICATIONS PRIOR TO SURGERY ?EXCEPT THE FOLLOWING Please no make-up, nail cuban, hairspray, perfume, deodorant, or body powder the day of surgery. No jewelry (including any body piercings) or valuables the day of surgery, leave them at home. Please take a shower or bath the night before, or the morning of, surgery with an antibacterial soap. Wear comfortable, loose fitting clothing. Children are encouraged to wear pajamas. - Jewelry must be removed prior to entering the operating room. Rings and piercings that are not removed may be cut off. - The hospital will not accept responsibility for valuables. - Please leave all valuables, including medications, at home the day of surgery. If you are going home after surgery, a licensed helper driver must drive you home. - NO public transportation without another adult if you receive anesthesia. - We recommend that an adult stay with you for 24 hours following discharge. - We also recommend that you do not drive, make important decision, drink alcoholic beverages, or take any drugs that were not prescribed by your health care provider for at least 24 hours after your discharge time. For Pediatric surgeries, we recommend two adults accompany the child home. Follow any additional instructions given to you from your surgeon. If you or anyone in your household have experienced Covid symptoms in the past week, please notify your surgeon or the nurse liaison at the phone number below for possible testing. Telephone instructions given to TERESA STEWART and asked if any additional questions and then verbalized understanding. Patient advised to call surgeon office or pre surgery nurse liaison [phone] if any additional questions.
[2022-05-18 13:06] VITALS: BMI 27.7
--- NOTE | 2022-05-25 11:36 | PM.IMHP ---
H&P: HPI History of Present Illness Date/Time: 05/25/22 11:36 Chief Complaint: Pelvic pain/uterine prolapse Narrative: Is a 41-year-old female with severe pelvic pain and uterine prolapse. She is unable to exercise without discomfort and unable have sex. She will undergo robotic total vaginal hysterectomy and bilateral salpingectomy. Risks and benefits were reviewed including not exclusive of , aspiration, bleeding, transfusion, perforation a to bowel, bladder, ureters, or other internal organs with need for open laparotomy. She received the [employer]G handout entitled hysterectomy as well as the [facility] [place] handout. She had all questions answered and asked to proceed she did sign the [facility] Past Medical History Medical History Anemia Hypertension IUP (intrauterine ), incidental Family History Family History Father Hypertension Social History Social History Smoking status: Never smoker Second hand tobacco smoke exposure: No Alcohol intake: current Drinks per week: 2 Substance use: never Substance use type: does not use Living arrangements: with family Spiritual care concerns: No Meds Home Medications and Allergies Home Medications Medication Instructions Recorded Confirmed Type acetaminophen 300 mg-codeine 30 mg 1 tablet PO PRN PAIN 01/08/22 05/18/22 History tablet lisinopril 20 mg tablet 20 mg PO DAILY 05/18/22 05/18/22 History Allergies Allergy/AdvReac Type Severity Reaction Status Date / Time No Known Allergies Allergy Verified 05/18/22 13:01 Exam Const: General: cooperative, healthy appearing, comfortable and well groomed Nutritional Appearance: average body habitus Orientation/consciousness: oriented to person, oriented to place and oriented to time Resp: Effort & Inspection: normal respiratory effort Cardio: Rate: regular rate Rhythm: regular rhythm Heart sounds: S1 normal heart sound present and S2 normal heart sound present GI: Inspection: normal to inspection : Speculum Exam - Vagina: normal appearance of the vagina Speculum Exam - Cervix: normal appearance of the cervix (Second-degree prolapse present) Bimanual exam- vagina & uterus: enlarged Bimanual Exam- Adnexa, other: normal adnexae Assessment and Plan Assessment and plan (1) Pelvic pain: Code(s): R10.2 - Pelvic and perineal pain Status: Acute (2) Uterine prolapse: Code(s): N81.4 - Uterovaginal prolapse, unspecified Status: Acute Plan Robotic total vaginal hysterectomy and bilateral salpingectomy
[2022-05-28] VITALS (10 sets, daily range): BP systolic 122–160; BP diastolic 76–104; PULSE 61–87; RESP 15–23; TEMP 36.3–37.1; O2SAT 98–100
--- NOTE | 2022-05-28 06:38 | WPDHPUPDATE1 ---
History and Physical Update Update Date/Time: 05/28/22 06:38 History and Physical has been reviewed, including an updated exam of the patient. There are NO changes in the patient's condition. Risks, benefits, and alternatives have been discussed and questions answered. Patient agrees to proceed with procedure.
--- NOTE | 2022-05-28 07:57 | P.PNAN_ITS ---
Anes - Initial Pre Proc Eval Procedure: Operation Date: 05/28/22 09:30 Proposed Procedures p Robotic Assisted Total Vaginal Hysterectomy with Bilateral Salpingectomy - Jeremy Hebert MD Date/Time: 05/28/22 07:57 Surgeon: Jeremy Hebert MD Pre Op Diagnosis: pelvic pain, uterine prolapse Patient Data Age: 41 Gender: F Height: 1.7 m Weight: 80.4 kg Allergies Allergy/AdvReac Type Severity Reaction Status Date / Time No Known Allergies Allergy Verified 05/28/22 07:46 Home Medications Medication Instructions Recorded Confirmed Type acetaminophen 300 mg-codeine 30 mg 1 tablet PO PRN PAIN 01/08/22 05/28/22 History tablet lisinopril 20 mg tablet 20 mg PO DAILY 05/18/22 05/28/22 History acetaminophen 500 mg tablet 1,000 mg PO Q6H PRN PAIN 05/28/22 05/28/22 History hydrocodone 5 mg-acetaminophen 325 1 tablet PO Q4H PRN pain #30 tabs 05/28/22 Rx mg tablet Patient hx anesthesia problems: none Family hx anesthesia problems: none Results Review: All pre-operative results and documents have been reviewed as part of the pre- operative evaluation. [facility] Past Medical History Medical History Anemia Hypertension IUP (intrauterine ), incidental Surgical History Surgical History (Updated 05/28/22 @ 07:58 by Jeremy Dooley MD) H/O laparoscopy Family History Family History Father Hypertension Social History Social History Smoking status: Never smoker Second hand tobacco smoke exposure: No Alcohol intake: current Drinks per week: 2 Substance use: never Substance use type: does not use Living arrangements: with family Spiritual care concerns: No Anes - Eval Final PreProcedure Day of Procedure 05/28/22 07:57 Patient weight: overweight Heart: regular rate and rhythm Lungs: clear to auscultation Airway: Mallampati scale class II Neurological: alert and oriented Last oral intake: >/= 8 hours ASA classification: II Emergent: no Anesthetic plan: proceed Anesthesia type and monitoring: general ETT and standard monitoring Results Review: All pre-operative results and documents have been reviewed as part of the pre-operative evaluation. Informed Consent: The patient's anesthetic plan and its attendant risks and benefits were discussed with the patient/family/POA. Questions were solicited and answers provided to the satisfaction of the patient/family/POA.
[2022-05-28] MEDS: LACTATED RINGERS 1,000 ML 30 ML IV CONT ×3 (08:20→15:15)
[2022-05-28] MEDS: KETOROLAC 15 MG/ML VIAL (*BKC) IV PUSH (08:21)
--- NOTE | 2022-05-28 09:49 | SUR.PREOP ---
0948-Pt and aware surgeon delays self ~1-1 1/2 hours.
[2022-05-28] MEDS: ACETAMINOPHEN 500 MG TABLET 1000 MG PO (11:34)
--- NOTE | 2022-05-28 14:27 | P.OP_ITS ---
Procedure Note - Detailed Date of Procedure 05/28/22 Pre-op Diagnosis pelvic pain, uterine prolapse Post-op Diagnosis Same Procedure Performed Chronic total vaginal hysterectomy and bilateral salpingectomy Surgeon Jeremy Hebert MD Anesthesia General Indications is a 41-year-old female is chronic pelvic pain and uterine prolapse Findings enlarged uterus with prolapse. Normal-appearing tubes and ovaries. Description of Procedure Patient was prepped draped in the normal sterile fashion placed in dorsal lithotomy position. Under excellent general trach anesthesia weighted speculum placed in posterior fornix vagina. Anterior lip the cervix grasped with single- tooth tenaculum. The uterus sounded to 8cm. Serial dilatation with fragmented dilators performed followed by passage of the 8. ESDRAS and the 3. 0.5 cold cup. Next the 16 Serbian catheter was placed. The gloves were changed. A supraumbilical incision made the Veress needle passed in the abdomen. Abdomen filled with CO2 gas [id number]. The 8mm trocar advanced in the abdomen. Downside visualized no injury seen. Patient placed in Trendelenburg and right left lateral quadrant incision made. 8Mm trocars were then advanced direct v isualization assuring no injury. A right upper quadrant incision made and the trocar advanced under direct visualization. The uterus was noted to be large prolapse. The robot was docked. Attention was turned to the director counseling bureau. The left round ligament grasped, burned, cut. Anterior bladder flap was formed by sharply dissecting the peritoneum and reflecting the bladder caudally from the uterus and cervix to the opposite round ligament was clamped, burned, cut. Next the fallopian tube on the left was removed it was noted be quite long. Serial incisions were made and it was left attached to the uterine origin. The right fallopian tube was dissected away from right ovary and tube and lacked attached to the uterus. The utero-ovarian ligament on the left was skeletonized to conserve the left ovary clamped, burned, cut brought to the level of previously cut round ligament. This was repeated on the contralateral side where the right utero-ovarian ligament was clamped, burned, brought to the level of previously cut round ligament. The cardinal broad ligaments on the left were serially skeletonized clamping burning cutting down the lateral edge of the cervix and uterus until the uterine large tortuous uterine vessels could be seen. These were clamped, burned, cut. In like fashion the cardinal broad ligaments on the right were serially skeletonized clamping burning cutting and hugging the uterus and cervix until the uterine vessels could be seen on the right. These uterine vessels were then individually clamped, burned, cut. The uterus and was noted to roselia in a colpotomy incision was made. Uterus cervix and tubes removed through the vagina. The vagina was then closed with continuous running 0V lock from lateral edge to lateral edge back to the midline. Irrigation undertaken to clear and Critz term placed over the raw surface area to assure hemostasis. Blood loss was estimated 25cc. The robot was undocked and the gas removed from the abdomen. The trocars removed and the incisions closed with 4-0 Monocryl and glue. Patient was awakened and went to recovery in satisfactory condition. All sponge, needle, instrument counts were correct. There were no immediate complications Estimated Blood Loss 25 Drains No Packing No Pathology Yes Complications No immediate complications Condition Stable Disposition PACU
[2022-05-28] MEDS: ONDANSETRON INJ 4 MG/2 ML VIAL IV PUSH ×2 (15:03→16:45)
[2022-05-28] MEDS: SCOPOLAMINE 1.5 MG PATCH TRANSDERM (15:30)
[2022-05-28] MEDS: diphenhydrAMINE HCl INJ 50 MG/ML VIAL 25 MG IV PUSH (15:31)
--- NOTE | 2022-05-28 15:33 | P.DS_ITS ---
DS: Admitting Diagnosis Discharge Date 05/29/2022 Admitting Diagnosis uterine prolapse /pelvic pain DS: Discharge Diagnosis Discharge Diagnosis (1) Uterine prolapse: Code(s): N81.4 - Uterovaginal prolapse, unspecified Status: Acute (2) Pelvic pain: Code(s): R10.2 - Pelvic and perineal pain Status: Acute DS: Summary Hospital Course Reason for hospitalization: the patient was admitted for robotic total vaginal hysterectomy and bilateral salpingectomy Hospital Course: she underwent an unremarkable robotic total vaginectomy and bilateral salpingectomy on 05/28/2022. Her hospital course was unremarkable. She remained afebrile. She was up, voiding difficulty, ambulating, eating regular diet, and generally without complaints. Time Spent with Patient Time attestation: Total time spent providing and/or coordinating discharge services: Exam Const: General: cooperative, healthy appearing and comfortable Nutritional Appearance: average body habitus Orientation/consciousness: oriented to person, oriented to place and oriented to time HENMT: Head: normal to inspection Resp: Effort & Inspection: normal respiratory effort Cardio: Rate: regular rate Rhythm: regular rhythm Heart sounds: S1 normal heart sound present and S2 normal heart sound present GI: Inspection: normal to inspection and incision ( Wounds are clean dry and intact) DS: Data Data Completed and Pending Pending studies at discharge: Pending at discharge 05/28/22 14:13 Surgical [PTH] Routine Discharge Plan Discharge Patient Disposition: Home, Self-Care Discharge Instructions: Call or return if temperature above 100.4? F, increased abdominal pain, inc reased vaginal bleeding or any new problems. Patient Instructions: Hysterectomy (DC) Stand Alone Forms: General Discharge Instructions Follow-up/Referrals: Jeremy Liriano MD [Physician] - 2 Weeks Discharge Medications: New tramadol 50 mg tablet 50 mg PO Q4-6H PRN (Reason: pain) Qty: 30 0RF Continued lisinopril 20 mg tablet 20 mg PO DAILY acetaminophen 500 mg Tablet 1,000 mg PO Q6H PRN (Reason: PAIN) Discontinued acetaminophen-codeine 300-30 mg tablet 1 tablet PO PRN
[2022-05-28] MEDS: fentaNYL CITRATE INJ (*CRX) 100 MCG/2 ML VIAL 25 MCG IV PUSH ×2 (15:51→15:54)
[2022-05-28] MEDS: KETOROLAC 30 MG/ML VIAL (*BKC) IV PUSH (16:45)
[2022-05-28] MEDS: DOCUSATE SODIUM 100 MG CAPSULE PO (22:21)
[2022-05-29 00:06] VITALS: BP 152/101; PULSE 99; RESP 18; TEMP 37.5; O2SAT 99
[2022-05-29 04:48] VITALS: BP 128/83; PULSE 89; RESP 16; TEMP 37.2; O2SAT 97
[2022-05-29] MEDS: traMADol HCL (*CRX) 50 MG TABLET PO ×2 (05:18→09:47)
[2022-05-29 05:36] LABS: Basophils Percent Auto 0.4 % (0.2-1.2); Hematocrit 37.3 % (37.0-47.0); Hemoglobin 12.8 g/dL (12.0-15.0); Immature Granulocyte Absolute 0.06 K/mm3 (0.00-0.031); Immature Granulocyte Percent A 0.6 % (0-0.5); Lymphocytes Absolute Auto 1.09 K/mm3 (0.9-3.2); Lymphocytes Percent Auto 10.5 % (18.3-44.2); Mean Corpuscular HGB Conc 34.3 g/dl (32-36); Mean Corpuscular Volume 96.1 fl (80-100); Mean Platelet Volume 10.2 fl (7.4-10.4); Monocytes Absolute Auto 0.6 K/mm3 (0.1-0.6); Monocytes Percent Auto 6.1 % (2.6-8.5); Neutrophils Absolute Auto 8.6 K/mm3 (1.3-6.7); Neutrophils Percent Auto 82.4 % (45.5-73.1); Platelet Count Result 181 k/mm3 (150-375); Red Blood Count 3.88 M/mm3 (4.2-5.4); Red Cell Distribution Width 11.9 % (11.5-14.5); White Blood Count 10.4 K/mm3 (4.5-10.0)
[2022-05-29 07:30] VITALS: BP 123/74; PULSE 86; RESP 16; TEMP 37.5
--- NOTE | 2022-05-29 09:08 | P.PNAN_ITS ---
Anes - Prog Note Post-Op Date/Time: 05/29/22 09:08 Cardiovascular status: normal Respiratory status: normal Airway patency: baseline Mental status: baseline Post-Op hydration status: normal Vital Signs: Last Vital Signs Temp 37.5 C 05/29/22 07:30 Pulse 86 05/29/22 07:30 Resp 16 05/29/22 07:30 BP 123/74 05/29/22 07:30 Pulse Ox 97 05/29/22 04:48 O2 Del Method Room Air 05/28/22 20:00 O2 Flow Rate 6 05/28/22 14:56 Pain Score (VAS): 3 I/O: Intake & Output 05/28/22 05/29/22 05/29/22 23:59 07:59 15:59 Intake Total 500 Output Total 200 1000 Balance -200 -500 Laboratory Tests 05/29/22 05:12 05/29/22 05:12 WBC 10.4 H RBC 3.88 L Hgb 12.8 Hct 37.3 MCV 96.1 MCH 33.0 MCHC 34.3 RDW 11.9 Plt Count 181 MPV 10.2 Immature Gran % (Auto) 0.6 H Neut % (Auto) 82.4 H Lymph % (Auto) 10.5 L Lanier % (Auto) 6.1 Eos % (Auto) 0.0 Baso % (Auto) 0.4 Lymph # (Auto) 1.09 Lanier # (Auto) 0.6 Eos # (Auto) 0.0 Baso # (Auto) 0.0 Abs Immat Gran (auto) 0.06 H Absolute Neuts (auto) 8.6 H Absolute Nucleated RBC 0.0 Nucleated RBC % 0.0 Post-procedural complaints: none Patient Feedback: Patient satisfied with anesthetic care.n/v last night. improved today
[2022-05-29] MEDS: DOCUSATE SODIUM 100 MG CAPSULE PO (09:46)
[2022-05-29] MEDS: lisinopriL 20 MG TABLET PO (09:47)
[2022-05-29] MEDS: ENOXAPARIN 40 MG/0.4 ML SYRINGE SUB-Q (09:48)
[2022-05-29] MEDS: SIMETHICONE 80 MG TAB.CHEW PO (09:49)
--- NOTE | 2022-05-29 12:20 | PM.GYNPNOP ---
VIDEO PRODUCTION ENGINEER - A/P Assessment and plan (1) Uterine prolapse: Code(s): N81.4 - Uterovaginal prolapse, unspecified Status: Acute Assessment and Plan: A: POD#1, doing well. P: Home to f/u 2 weeks. (2) Pelvic pain: Code(s): R10.2 - Pelvic and perineal pain Status: Acute Postoperative Procedures: Procedures Operation Date: 05/28/22 09:30 Actual Procedure Side Surgeon p Robotic Assisted Total Vaginal Hysterectomy with Bilateral Salpingectomy Bilateral Jeremy Hebert MD Time Spent With Patient Time with patient: less than 15 minutes VIDEO PRODUCTION ENGINEER- PN:Subj Post-Op Subjective Date/time seen: 05/29/22 12:20 Interval history: Pain OK. Tolerating diet. Voiding. Would like to go home. Exam Narrative: AVSS I/O OK ABD soft, nontender. Incisions c/d/i. EXT nontender VIDEO PRODUCTION ENGINEER - PN: Obj Data Vital Signs Vital Signs: Vital Signs - 24 hr 05/28/22 14:43 05/28/22 14:56 05/28/22 15:10 Temperature 36.5 C Pulse Rate 87 80 69 Respiratory Rate 16 23 H 18 Blood Pressure 127/76 123/80 122/78 Pulse Oximetry 100 100 100 Oxygen Delivery Simple Face Mask Simple Face Mask Room Air Oxygen Flow Rate 6 6 05/28/22 15:27 05/28/22 15:40 05/28/22 15:55 Temperature Pulse Rate 78 73 61 Respiratory Rate 17 20 15 Blood Pressure 146/91 H 140/84 137/81 Pulse Oximetry 99 100 98 Oxygen Delivery Room Air Room Air Room Air Oxygen Flow Rate 05/28/22 16:20 05/28/22 16:20 05/28/22 19:40 Temperature 36.3 C L 36.3 C L Pulse Rate 75 61 61 Respiratory Rate 18 15 15 Blood Pressure 157/97 H 157/97 H Pulse Oximetry 100 98 98 Oxygen Delivery Room Air Room Air Oxygen Flow Rate 05/28/22 19:26 05/28/22 20:00 05/29/22 00:06 Temperature 37.1 C 37.5 C Pulse Rate 83 99 Respiratory Rate 18 18 Blood Pressure 160/104 H 152/101 H Pulse Oximetry 100 99 Oxygen Delivery Room Air Oxygen Flow Rate 05/29/22 04:48 05/29/22 07:30 Temperature 37.2 C 37.5 C Pulse Rate 89 86 Respiratory Rate 16 16 Blood Pressure 128/83 123/74 Pulse Oximetry 97 Oxygen Delivery Oxygen Flow Rate Intake/Output Intake/Output: Intake & Output 05/26/22 05/27/22 05/28/22 05/29/22 23:59 23:59 23:59 23:59 Intake Total 1100 500 Output Total 300 1200 Balance 800 -700 Meds/Results Medications: Active Medications Generic Name Dose Route Start Last Admin Trade Name Freq PRN Reason Stop Dose Admin Docusate Sodium 100 mg 05/28/22 17:00 05/29/22 09:46 Docusate Sodium 100 Mg Capsule PO 100 mg BID JULINE Administration Enoxaparin Sodium 40 mg 05/29/22 09:00 05/29/22 09:48 Enoxaparin 40 Mg/0.4 Ml Syringe SUB-Q 40 mg DAILY JULIEN Administration Ibuprofen 600 mg 05/28/22 16:09 Ibuprofen 600 Mg Tablet PO Q6H PRN Cramping Ketorolac Tromethamine 30 mg 05/28/22 16:09 05/28/22 16:45 Ketorolac 30 Mg/Ml Vial (*Bkc) IV PUSH 06/02/22 16:08 30 mg Q6H PRN Administration Pain Rated 4-6 Lisinopril 20 mg 05/29/22 09:00 05/29/22 09:47 Lisinopril 20 Mg Tablet PO 20 mg QAM JULIEN Administration Naloxone HCl 0.1 mg 05/28/22 16:09 Naloxone Hcl 0.4 Mg/Ml Vial IV PUSH Q2M PRN Respiratory rate less than 10 Ondansetron HCl 4 mg 05/28/22 16:09 05/28/22 16:45 Ondansetron Inj 4 Mg/2 Ml Vial IV PUSH 4 mg Q6H PRN Administration Nausea And Vomiting Simethicone 80 mg 05/28/22 16:09 05/29/22 09:49 Simethicone 80 Mg Tab.Chew PO 80 mg Q2H PRN Administration Gas Tramadol HCl 50 mg 05/28/22 19:40 05/29/22 09:47 Tramadol Hcl (*Crx) 50 Mg Tablet PO 50 mg Q4H PRN Administration Pain Rated 4-6 Labs 05/29/22 05:12 Labs: Laboratory Results - last 24 hr 05/29/22 05:12 WBC 10.4 H RBC 3.88 L Hgb 12.8 Hct 37.3 MCV 96.1 MCH 33.0 MCHC 34.3 RDW 11.9 Plt Count 181 MPV 10.2 Immature Gran % (Auto) 0.6 H Neut % (Auto) 82.4 H Lymph % (Auto) 10.5 L Pitkin % (Auto) 6.1 Eos % (A
--- NOTE | 2022-05-29 12:27 | PM.DS ---
DS: Admitting Diagnosis Discharge Date 05/29/22 Admitting Diagnosis Prolapse Pelvic pain DS: Discharge Diagnosis Discharge Diagnosis (1) Pelvic pain: Code(s): R10.2 - Pelvic and perineal pain Status: Acute (2) Uterine prolapse: Code(s): N81.4 - Uterovaginal prolapse, unspecified Status: Acute DS: Summary Hospital Course Hospital Course: Admitted on the date of scheduled surgery. Please see OP note. Did well postoperatively and went home on POD#1. Time Spent with Patient Time attestation: Total time spent providing and/or coordinating discharge services: DS: Data Data Completed and Pending Pending studies at discharge: Pending at discharge 05/28/22 14:13 Surgical [PTH] Routine Labs on day of discharge: Labs from last 24 hours 05/29/22 05:12 WBC 10.4 H RBC 3.88 L Hgb 12.8 Hct 37.3 MCV 96.1 MCH 33.0 MCHC 34.3 RDW 11.9 Plt Count 181 MPV 10.2 Immature Gran % (Auto) 0.6 H Neut % (Auto) 82.4 H Lymph % (Auto) 10.5 L Keith % (Auto) 6.1 Eos % (Auto) 0.0 Baso % (Auto) 0.4 Lymph # (Auto) 1.09 Keith # (Auto) 0.6 Eos # (Auto) 0.0 Baso # (Auto) 0.0 Abs Immat Gran (auto) 0.06 H Absolute Neuts (auto) 8.6 H Absolute Nucleated RBC 0.0 Nucleated RBC % 0.0 Discharge Plan Discharge Patient Disposition: Home, Self-Care Discharge Instructions: Call or return if temperature above 100.4? F, increased abdominal pain, increased vaginal bleeding or any new problems. Stand Alone Forms: General Discharge Instructions Follow-up/Referrals: Jeremy Liriano MD [Physician] - 2 Weeks Discharge Medications: New tramadol 50 mg tablet 50 mg PO Q4-6H PRN (Reason: pain) Qty: 30 0RF Continued lisinopril 20 mg tablet 20 mg PO DAILY acetaminophen 500 mg Tablet 1,000 mg PO Q6H PRN (Reason: PAIN) Discontinued acetaminophen-codeine 300-30 mg tablet 1 tablet PO PRN
== END 2022-05-29 13:28 | disposition home or self-care (01) ==
LOC: ANHSURGERY 15:35 → ANHOB2 16:12
PROVIDERS: PCP Family Medicine Adolescent Medicine; Visit Provider Obstetrics & Gynecology
PROC: (CPT 58260; principal; 2022-05-28 09:30)
DX: N81.4 Uterovaginal prolapse, unspecified (principal); R10.2 Pelvic and perineal pain; I10 Essential (primary) hypertension
CPT/HCPCS: 58260; 36415; 85025; 88307; 99199; A9270; J1100; J1200; J1650; J1885; J2250; J2310; J2405; J2704; J3010; J7030; J7120

== ENCOUNTER 2022-07-21 10:24 | Outpatient (CLI) | payer OTHER, SELFPAY ==
--- NOTE | ~2022-07-21 | US_ITS ---
Pelvic ultrasound. Clinical History: Pelvic pain Technique: Realtime transabdominal and transvaginal scanning of the pelvis was performed. Color flow Doppler and Doppler spectral analysis were performed. Findings: The uterus is absent, compatible prior hysterectomy. The right ovary measures 3.4 x 2.0 x 2.2 cm. No significant right ovarian or adnexal mass is seen. V ascular flow present in the right ovary on Doppler spectral analysis. The left ovary is not visualized. No significant left ovarian or adnexal mass is seen. There is no evidence of free fluid in the cul de sac. Impression: Status post hysterectomy. Right ovary is unremarkable. Left ovary not seen. Reviewed, dictated and finalized at location . Impression: Status post hysterectomy. Right ovary is unremarkable. Left ovary not seen.
== END 2022-07-21 10:25 | disposition home or self-care (01) ==
PROVIDERS: PCP Family Medicine Adolescent Medicine; Visit Provider Obstetrics & Gynecology
DX: R10.2 Pelvic and perineal pain (principal)
CPT/HCPCS: 76830; 76856

== ENCOUNTER 2023-08-09 13:40 | Outpatient (CLI) | payer OTHER, SELFPAY ==
--- NOTE | ~2023-08-09 | CT_ITS ---
CT of the Pelvis: Indication: Pelvic pain Technique: 2.5 mm axial scans were obtained through the pelvis following intravenous administration of 100 cc of Omnipaque 350. Dose reduction technique was used on this scan by utilizing automated exp osure control and iterative reconstruction technique. The dose-length product (DLP) was 608.62 mGy-cm . Findings: Aortic bifurcation and visualized vascular structures are unremarkable. Visualized bowel lo ops are unremarkable. No bowel obstruction identified. Urinary bladder unremarkable. Patient is post hysterectomy. There is a 5.7 x 4.6 cm cystic left ovari an mass with a single apparent septation present. No other adnexal mass seen. No ascites. Impression: 5.7 x 4.6 cm cystic left ovarian mass with single septation. At a minimum, recommend follow-up ultras ound in 6-8 weeks to assess for resolution. Pre and postcontrast MR could be performed if there is co ncern for ovarian neoplasm to better assess for any small soft tissue component. Reviewed, dictated and finalized at [facility]. Impression: 5.7 x 4.6 cm cystic left ovarian mass with single septation. At a minimum, ok mmend follow-up ultrasound in 6-8 weeks to assess for resolution. Pre and postc ontrast MR could be performed if there is concern for ovarian neoplasm to priya r assess for any small soft tissue component.
[2023-08-09 14:00] LABS: Estimated Glomerular Filt Rate > 60
== END 2023-08-09 13:41 | disposition home or self-care (01) ==
LOC: ANHIMG 13:41
PROVIDERS: PCP Family Medicine Adolescent Medicine; Visit Provider Obstetrics & Gynecology
DX: N83.202 Unspecified ovarian cyst, left side (principal)
CPT/HCPCS: 72193; Q9967

== ENCOUNTER 2023-08-31 08:36 | Outpatient (CLI) | payer OTHER, SELFPAY ==
--- NOTE | ~2023-08-31 | CT_ITS ---
CT of the Abdomen and Pelvis: Indication: Umbilical pain Technique: 2.5 mm axial scans were obtained through the abdomen and pelvis following intravenous adm inistration of 100 cc of Omnipaque 350. Dose reduction technique was used on this scan by utilizing a utomated exposure control and iterative reconstruction technique. The dose-length product (DLP) was 4 04.97 mGy-cm. Findings: Scans through the lung bases are unremarkable. The liver, spleen, pancreas, gallbladder, adrenals and kidneys are within normal limits. No evidence of aortic aneurysm. No lymphadenopathy. Visualized bowel loops are unremarkable.. No ascites. Impression: No significant abnormalities seen. Reviewed, dictated and finalized at location . Impression: No significant abnormalities seen.
[2023-08-31 09:09] LABS: Estimated Glomerular Filt Rate > 60
== END 2023-08-31 08:37 | disposition home or self-care (01) ==
PROVIDERS: PCP Family Medicine Adolescent Medicine; Visit Provider Nurse Practitioner
DX: R10.33 Periumbilical pain (principal); R14.0 Abdominal distension (gaseous)
CPT/HCPCS: 74160; Q9967

== ENCOUNTER 2023-09-09 11:08 | Outpatient (CLI) | payer OTHER, SELFPAY ==
--- NOTE | ~2023-09-09 | US_ITS ---
Pelvic ultrasound. Clinical History: Left ovarian cyst follow-up Technique: Realtime transabdominal and transvaginal scanning of the pelvis was performed. Color flow Doppler and Doppler spectral analysis were performed. COMPARISON: 07/21/2022 Findings: The uterus is absent, compatible prior hysterectomy. The right ovary measures 2.8 x 2.8 x 2.6 cm. Simple right ovarian cyst measures 2.4 cm in diameter. The left ovary measures 1.8 x 2.2 x 2.0 cm. No significant left ovarian or adnexal mass is seen. There is no evidence of free fluid in the cul de sac. Impression: 2.4 cm simple right ovarian cyst. Reviewed, dictated and finalized at location . Impression: 2.4 cm simple right ovarian cyst.
== END 2023-09-09 11:09 ==
LOC: GOSHIMG 11:08
PROVIDERS: PCP Family Medicine Adolescent Medicine; Visit Provider Obstetrics & Gynecology
DX: N83.291 Other ovarian cyst, right side (principal)
CPT/HCPCS: 76830; 76856

== ENCOUNTER 2023-09-12 07:19 | Outpatient (NON) | payer OTHER, SELFPAY | END 2023-09-12 07:20 | disposition home or self-care (01) | LOC: ANHLAB 09-13 07:20 | PROVIDERS: PCP Family Medicine Adolescent Medicine; Visit Provider Internal Medicine Gastroenterology | DX: K62.1 Rectal polyp (principal) | CPT/HCPCS: 88305 ==

== ENCOUNTER 2023-09-12 10:43 | Day surgery (SDC) | payer OTHER, SELFPAY ==
[2023-08-29 09:18] VITALS: BMI 29.8
--- NOTE | 2023-09-12 07:19 | WPDANESEPPF ---
Anes - Initial Pre Proc Eval Procedure: Operation Date: 09/12/23 13:00 Proposed Procedures p Diagnostic Colonoscopy - Tahir Galdamez MD Date/Time: 09/12/23 07:19 Surgeon: Tahir Galdamez MD Pre Op Diagnosis: Abdominal distention (gaseous),periumbulical pain Patient Data Age: 42 Gender: F Height: 1.7 m Weight: 86.183 kg Allergies Allergy/AdvReac Type Severity Reaction Status Date / Time No Known Allergies Allergy Verified 09/12/23 11:53 Home Medications Medication Instructions Recorded Confirmed Type lisinopril 10 mg tablet 10 mg PO DAILY #90 tabs 03/30/23 09/12/23 Rx norethindrone (contraceptive) 0.35 0.35 mg PO DAILY #84 tabs 08/10/23 09/12/23 Rx mg tablet (Evlma) gabapentin 100 mg capsule 100 mg PO BID #180 caps 08/15/23 09/12/23 Rx gabapentin 300 mg capsule 600 mg PO QHS #180 caps 08/15/23 09/12/23 Rx meloxicam 15 mg tablet 7.5 - 15 mg PO DAILY PRN pain #90 08/16/23 09/12/23 Rx tabs Daily 1 tab-cap PO DAILY 08/29/23 09/12/23 History Tylenol 1 tab-cap PO DIRECTED 08/29/23 09/12/23 History Patient hx anesthesia problems: none Family hx anesthesia problems: none Results Review: All pre-operative results and documents have been reviewed as part of the pre-operative evaluation. [facility] Past Medical History Medical History Anemia Hypertension IUP (intrauterine ), incidental Surgical History Surgical History H/O laparoscopy History of dilatation and curettage x3 History of hysterectomy Family History Family History Father Hypertension Other Alcoholism Depression Social History Social History Smoking status: Never smoker Second hand tobacco smoke exposure: No Alcohol intake: current Drinks per week: 1 Substance use: never Substance use type: does not use Do You Feel Safe in your Home?: Yes Lack of Transportation: No Lack of Food: Never True Current Housing: I Have Housing Concerned About Future Housing: No Difficulty Paying Gas/Electric Bills: No Difficulty Paying for Meds: No Currently Unemployed: No Education: High School Diploma/GED Difficulty w/ Childcare or Family Care: No Living arrangements: with family Spiritual care concerns: No Comments BP elevated in pre op - discussed with patient I do not feel it necessary to treat at this time because she is relating this to current pain which she has daily which is why we are performing procedure as well as anxiety. Propofol lowers BP and colonoscopy can produce vagal response so we will see how BP is post op. Anes - Eval Final PreProcedure Day of Procedure 09/12/23 07:19 Patient weight: overweight Heart: regular rate and rhythm Lungs: clear to auscultation Airway: Mallampati scale class II Neurological: alert and oriented Last oral intake: >/= 8 hours ASA classification: II Emergent: no Anesthetic plan: proceed Anesthesia type and monitoring: general GIVS and standard monitoring Results Review: All pre-operative results and documents have been reviewed as part of the pre-operative evaluation. Informed Consent: The patient's anesthetic plan and its attendant risks and benefits were discussed with the patient/family/POA. Questions were solicited and answers provided to the satisfaction of the patient/family/POA.
[2023-09-12 11:59] VITALS: BP 174/115; PULSE 82; RESP 17; TEMP 36.7; O2SAT 99
--- NOTE | 2023-09-12 11:59 | PM.HPGS ---
History of Present Illness History of Present Illness Consent: Risks, benefits, and alternatives have been discussed and questions answered. Patient agrees to proceed with procedure. Chief complaint: Abdominal distention (gaseous),periumbulical pain Narrative: January Palma is a 42 year old female Speech due to a suspicion of inflammatory bowel disease. C reactive protein is elevated. She has frequent pelvic pain Review of Systems Review of Systems: All systems reviewed & are unremarkable except as noted in HPI and below PMFSH Past Medical History Medical History Anemia Hypertension IUP (intrauterine ), incidental Surgical History Surgical History H/O laparoscopy History of dilatation and curettage x3 History of hysterectomy Family History Family History Father Hypertension Other Alcoholism Depression Social History Social History Smoking status: Never smoker Second hand tobacco smoke exposure: No Alcohol intake: current Drinks per week: 1 Substance use: never Substance use type: does not use Do You Feel Safe in your Home?: Yes Lack of Transportation: No Lack of Food: Never True Current Housing: I Have Housing Concerned About Future Housing: No Difficulty Paying Gas/Electric Bills: No Difficulty Paying for Meds: No Currently Unemployed: No Education: High School Diploma/GED Difficulty w/ Childcare or Family Care: No Living arrangements: with family Spiritual care concerns: No Meds Home Medications and Allergies Home Medications Medication Instructions Recorded Confirmed Type lisinopril 10 mg tablet 10 mg PO DAILY #90 tabs 03/30/23 09/12/23 Rx norethindrone (contraceptive) 0.35 0.35 mg PO DAILY #84 tabs 08/10/23 09/12/23 Rx mg tablet (Velma) gabapentin 100 mg capsule 100 mg PO BID #180 caps 08/15/23 09/12/23 Rx gabapentin 300 mg capsule 600 mg PO QHS #180 caps 08/15/23 09/12/23 Rx meloxicam 15 mg tablet 7.5 - 15 mg PO DAILY PRN pain #90 08/16/23 09/12/23 Rx tabs Daily 1 tab-cap PO DAILY 08/29/23 09/12/23 History Tylenol 1 tab-cap PO DIRECTED 08/29/23 09/12/23 History Allergies Allergy/AdvReac Type Severity Reaction Status Date / Time No Known Allergies Allergy Verified 09/12/23 11:53 Exam Resp: Auscultation: clear to auscultation bilaterally Cardio: Rate: regular rate Rhythm: regular rhythm GI: GI Palp: Yes Soft to palpation and No Tenderness to palpation present (GI) Assessment and Plan Assessment and plan (1) Abdominal pain: Qualifiers: Abdominal location: periumbilical Qualified Code(s): R10.33 - Periumbilical pain Code(s): R10.9 - Unspecified abdominal pain Status: Acute Assessment and Plan: Colonoscopy with possible biopsy or polypectomy or cautery or injection of substances.
[2023-09-12] MEDS: LACTATED RINGERS 1,000 ML 150 ML IV CONT (12:16)
--- NOTE | 2023-09-12 12:18 | SUR.PREOP ---
Pt's pre-op BP 174/115, 174/117. Pt asymptomatic, has not had BP medication today. Pt states took Lisinopril yesterday. Dr. No notified of pt's BP, no new orders at this time.
[2023-09-12 12:48] VITALS: BP 144/104; PULSE 96; RESP 17; O2SAT 100
[2023-09-12 12:58] VITALS: BP 150/108; PULSE 84; RESP 17; O2SAT 100
[2023-09-12 13:08] VITALS: BP 152/106; PULSE 86; RESP 17; O2SAT 100
--- NOTE | 2023-09-12 13:18 | WPDANESPN ---
Anes - Prog Note Post-Op Date/Time: 09/12/23 13:18 Cardiovascular status: normal Respiratory status: normal Airway patency: baseline Mental status: baseline Post-Op hydration status: normal Vital Signs: Last Vital Signs Temp 36.7 C 09/12/23 11:59 Pulse 86 09/12/23 13:08 Resp 17 09/12/23 13:08 BP 152/106 H 09/12/23 13:08 Pulse Ox 100 09/12/23 13:08 O2 Del Method Room Air 09/12/23 13:08 Pain Score (VAS): 0 I/O: Intake & Output 09/11/23 09/12/23 09/12/23 23:59 07:59 15:59 Intake Total 300 Balance 300 Post-procedural complaints: none Patient Feedback: Patient satisfied with anesthetic care. Other Findings: Patient vital signs back to baseline. Patient denies nausea and vomiting. Patient's pain under control. Patient OK for discharge.
== END 2023-09-12 13:19 | disposition home or self-care (01) ==
PROVIDERS: PCP Family Medicine Adolescent Medicine; Visit Provider Internal Medicine Gastroenterology
PROC: 0DJD8ZZ Inspection of Lower Intestinal Tract, Via Natural or Artificial Opening Endoscopic (ICD-10-PCS; CPT 45378; principal; 2023-09-12 13:00)
DX: R10.2 Pelvic and perineal pain (principal); K62.1 Rectal polyp
CPT/HCPCS: 45380

== ENCOUNTER 2024-10-03 18:31 | Emergency (ER) | payer BC, SELFPAY ==
--- OUTSIDE RECORDS SUMMARY | 2024-10-03 18:33 | XMS_ITS | Clinical Summary ---
Author Organization [facility] Care Team Providers Care Nursery Helper Name Role Phone Unavailable Primary Care Provider Unavailabl e Social History Tobacco Use Types Packs/Day Years Used Date Smoking Tobacco: Never Assessed Comments Unknown Sex and Gender Information Value Date Recorded Sex Assigned at Not on file Legal Sex Female 11:49 AM CDT Gender Identity Not on file Sexual Orientation Not on file Plan of Treatment Health Maintenance Due Date Last Done Comments Hepatitis C Virus (HCV) Screening 1981 Hepatitis B Immunization (1 of 3 - 19+ 3-dose series) 2000 Pap Smear 2002 Cervical Cancer Screening (CCS) 10/23/2011 HPV/Cotest 10/23/2011 Discussion re Starting/Frequency of Mammograms 2021 Influenza Immunization (#1) 2023 SARS-COV-2 Immunization (2023- season) 2023 08/26/2020, 08/03/2020 Respiratory Syncytial Virus (RSV) Immunization (Adult) (1 - 1-dose 75+ series) 2056 DTaP/Tdap/Td Immunization Discontinued 07/08/2020 TdaP Immunization Completed 07/08/2020 Meningococcal Immunization (ACWY) Aged Out No longer eligible based on patient's age to complete this topic Pneumococcal Immunization Combined Aged Out No longer eligible based on patient's age to complete this topic Rotavirus Immunization Aged Out No lo nger eligible based on patient's age to complete this topic
--- OUTSIDE RECORDS SUMMARY | 2024-10-03 18:33 | XMS_ITS | Clinical Summary ---
Author Organization [facility] [employer] Address [address] 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 This disclosure is being madepursuant to the Care Everywhere program and may not contain all information available regarding this patient. Last updated 18.[facility] [employer] Allergies No known active allergies Medications * Be aware that medications may not be up to date on this document. Alwaysverify current medications with the patient. lisinopril (Prinivil; Zestril) 10 MG tablet Take 1 (one) tablet by mouth once daily 4 Active meloxicam (Mobic) 15 MG tablet TAKE 1/2 TO 1 TABLET BY MOUTH DAILY NEEDED FOR PAIN 4 Active pregabalin (Lyrica) 50 MG capsule Take 1 (one) capsule by mouth 2 times daily 5 Active cetirizine (ZyrTEC) 5 MG tablet Take 1 (one) tablet by mouth once daily Active oxyCODONE, immediate release, (Roxicodone) 5 MG tabletIndications :Stress incontinence Take 1 (one) tablet by mouth every 6 hours as needed for Pain 12 tablet 5 10/02/19 25 Discontinu ed(List Clean-Up) Active Problems Problem Noted Date Diagnosed Date Perineal pain 05/11/2023 Encounters Date Type Department Care Team Description 10/01/2024 11:45 AM CDT Office Visit [facility] [address] [place] [phone] Bertram Painting MD Postop check (Primary Dx) 10/01/2024 Travel 08/23/2024 9:00 AM CDT Office Visit [facility] [address] [place] [phone] Asa Dyer Che, MD Post-op pain (Primary Dx); Chronic pelvic pain in female 08/23/2024 Travel 08/22/2024 Telephone [facility] Central[facility] Scheduling [address] [place] [phone] Bertram Painting MD Appointment 08/22/2024 Telephone [facility] [address], [facility] [address] [place] [phone] Bertram Painting MD Bleeding Bruising; Med Question 08/16/2024 7:24 AM CDT Anesthesia Event [facility] [address] [place] [address] Sal Mariee MD Anokhin, Larissa, 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 08/16/2024 7:15 AM CDT - 08/16/2024 8:47 AM CDT Surgery [facility] [address] [place] [address] Bertram Painting MD MIDURETHRAL SLING, CYSTOSCOPY 08/16/2024 5:19 AM CDT - 08/16/2024 11:50 AM CDT Hospital Encounter [facility] [address] [place] [phone] Bertram Painting MD Surgery General Discharge Disposition: Home or Self Care 08/16/2024 Travel 08/10/2024 Travel 07/19/2024 Telephone [facility] [address], [facility] [address] [place] [phone] Bertram Painting MD Request Lab Order 07/16/2024 1:45 PM CDT Office Visit [facility] [address] [place] [address] Bertram Painting MD Stress incontinence (Primary Dx) 07/16/2024 Travel from Last 3 Months Social History Tobacco Use Types Packs/Day Years Used Date Smoking Tobacco: Never Smokeless Tobacco: Never Tobacco Cessation:Counseling Given: Not Answered Alcohol Use Standard Drinks/Week Comments Not Currently 0 (1 standard drink = 0.6 oz pur e alcohol) PHQ-2 Answer Date Recorded Patient Health Questionnaire-2 Score 2 10/01/2024 Comments No Sex and Gender Information Value Date Recorded Sex Assigned at Not on file Legal Sex Female 7:51 AM CDT Gender Identity Not on file Sexual Orientation Not on file Last Filed Vital Signs Vital Sign Reading Time Taken Comments Blood Pressure 126/90 10/01/2024 11:43 AM CDT Pulse 85 08/16/2024 10:00 AM CDT Temperature 36.4 C (97.5 F) 08/16/2024 9:17 AM CDT Respiratory Rate 16 08/16/2024 10:00 AM CDT Oxygen Saturation 98% 08/16/2024 10:00 AM CDT Inhaled Oxygen Concentration - - Weight 88.5 kg (195 lb) 10/01/2024 11:43 AM CDT Height 170.2 cm (5' 7) 10/01/2024 11:43 AM CDT Body Mass Index 30.54 10/01/2024 11:43 AM CDT Plan of Treatment Health Maintenance Due Date Last Done Comments LIPID TESTING 1981 PAP SMEAR 1981 HIV SCREENING 1996 HEPATITIS C SCREENING 10/18/1999 DTAP/TDAP/TD VACCINES (1 - Tdap) 2000 HEPATITIS B VACCINE (1 of 3 - 19+ 3-dose series) 2000 COVID-19 VACCINE (3 - 2023-2 5 season) 2023 08/26/2020, 08/03/2020 INFLUENZA VACCINE (Season Ended) 2024 MAMMOGRAM 10/11/2025 10/12/2023, 10/12/2023 SCREENING FOR DIABETES 08/03/2027 , 12/22/2023 ZOSTER VACCINE (1 of 2) 10/23/2031 DEPRESSION SCREENING Completed 07/16/2024 HIB VACCINE Aged Out No longer eligi ble based on patient's age to complete this topic HPV VACCINE Aged Out No longer eligi ble based on patient's age to complete this topic MENINGOCOCCAL (Group B) VACCINE SHARED DECISION-MAKING Aged Out No longer eligible based on patient's age to complete this topic MENINGOCOCCAL GROUPS A/C/Y/W VACCINE Aged Out No longer eligible b ased on patient's age to complete this topic PNEUMOCOCCAL VACCINE Aged Out No long er eligible based on patient's age to complete this topic Medical Devices Implanted Type Area Cyber Systems Operations Specialist Device Identifier Shelf Expiration Date Model / Serial / Lot Impl Uro Bulkamid Bulk Ureth Strl Lf Implanted:Qty: 1 on 12/29/2023 by Bertram Painting MD at [facility] N/A: Urethra [employer] 06/22/2025 [id number] / / [id number] Sys Ureth Supp Arian Lynx Adv Trnvg Implanted:Qty: 1 on 08/16/2024 by Bertram Painting MD at [facility] N/A: Urethra [employer] 07/12/2026 [id number] / / [id number] Procedures Procedure Name Priority Date/Time Associated Diagnosis Comments CARDIAC RHYTHM STRIP ORDER 08/17/2024 8:37 PM CDT LARYNGEAL MASK AIRWAY Routine 08/16/2024 7:42 AM CDT ID SLING OPER STRES INCONTINENCE 08/16/2024 6:41 AM CDT Diagnosis unknown Special Needs NEEDS [employer] BLUE SLING LAB RESULTS ORDER 08/02/2024 LAB RESULTS ORDER 08/02/2024 ID INSERT NON-INDWELLING BLADDER Routine 07/16/2024 5:06 PM CDT Stress incontinence from Last 3 Months Results * CARDIAC RHYTHM STRIP ORDER (08/17/2024 8:37 PM CDT) Narrative 08/17/2024 8:37 PM CDT Ordered by an unspecified provider. us Scanned Document CARDIAC SERVICES ORDERABLES Fin al Result * LARYNGEAL MASK AIRWAY (08/16/2024 7:42 AM CDT) Narrative Raphael Delgadillo APRN-CRNA - 08/16/2024 7:42 AM CDT Raphael Delgadillo APRN-CRNA 08/16/2024 7:42 AM LMA Placement Procedure/LDA Note: Patient Location: OR. LMA Insertion Date/Time: 08/16/2024 7:32 AM Procedure: LMA Pretreatment: 100% O2 Induction: standard IV Type: LMA Size: 4 Number of Attempts: 1. Placement verified by: CO2 monitor Dentition unchanged? Yes Procedure Start Time: 08/16/2024 7:32 AM. Staff Section Anesthesia Provider: Raphael Delgadillo APRN-CRNA, Performed the procedure us Sal Mariee MD GENERAL ANESTHESIA ORDERABL ES Final Result * LAB RESULTS ORDER (08/02/2024) Only the most recent of2 resultswithin the time period is included. 08/02/2024 Narrative 08/02/2024 Ordered by an unspecified provider. us Scanned Document LAB - THERAPEUTIC DRUG MONITORI NG ORDERABLES Final Result * ID INSERT NON-INDWELLING BLADDER (07/16/2024 5:06 PM CDT) Narrative Bertram Painting MD - 07/16/2024 5:06 PM CDT Bertram Painting MD 07/16/2024 5:07 PM Straight catheterization was performed after swabbing the urethra with betadine. A 14 Fr urethral catheter was inserted without difficulty and the bladder was drained. The patient tolerated the procedure well. us Bertram Painting MD PROCEDURE/MINOR SURGICAL ORDERABLES Final Result from Last 3 Months Insurance ANTH * Guarantor: JANUARY PALMA Account Type Relation to Patient Date of Phone Billing Address Personal/Family [address] [place] [address] * Guarantor: AJNUARY PALMA Account Type Relation to Patient Date of Phone Billing Address Personal/Family [address] [place] [address] * Guarantor: JANUARY PALMA Account Type Relation to Patient Date of Phone Billing Address Personal/Family [address] [place] [address] [facility] HEALTH PLAN [facility] [place] [address] [facility]ALTH [facility] [place] [address] [place] [address] [facility]ALTH [facility] [place] [address] [facility]ALTH [facility] [employer] [facility] Care Teams Washtub Worker Helper Relationship Specialty Start Date End Date Fitz Martínez MD [address] [address] PCP - General 12/04/18
--- NOTE | 2024-10-03 18:36 | ED.URI ---
HPI - URI/Sore Throat General Chief Complaint: Upper Respiratory Infection Stated Complaint: Sore throat Time Seen by Provider: 10/03/24 18:45 Source: patient Mode of arrival: ambulatory Limitations: no limitations History of Present Illness HPI Narrative: January is a 43-year-old female patient presenting to the clinic today with complaints of sore throat that just started this morning. States that her whole family has strep. Denies any fevers, chills, body aches. Denies any URI symptoms. Related Data Allergies Allergy/AdvReac Type Severity Reaction Status Date / Time No Known Allergies Allergy Verified 10/03/24 18:38 Review of Systems Review of Systems: Pertinent positives per HPI. Patient denies any fever, chills, rash, headache, visual changes, dizziness, cough, shortness of breath, chest pain, palpitations, nausea, vomiting, diarrhea, constipation, abdominal pain, or any urinary issues. PMFSH Past Medical History Medical History Anemia Hypertension IUP (intrauterine ), incidental Surgical History Surgical History History of dilatation and curettage x3 History of hysterectomy H/O laparoscopy Family History Family History Father Hypertension Other Alcoholism Depression Social History Social History Smoking status: Never smoker Second hand tobacco smoke exposure: No Alcohol intake: current Drinks per week: 1 Substance use: never Substance use type: does not use Do You Feel Safe in your Home?: Yes Lack of Transportation: No Lack of Food: Never True Current Housing: I Have Housing Concerned About Future Housing: No Difficulty Paying Gas/Electric Bills: No Difficulty Paying for Meds: No Currently Unemployed: No Education: High School Diploma/GED Difficulty w/ Childcare or Family Care: No Living arrangements: with family Spiritual care concerns: No Comments At the time of my signature, I reviewed and agree with the nursing past medical, surgical, social, and family history. There is no relevant family history pertinent to the patient complaint. Exam Narrative: General: Well-developed, well nourished, in no apparent distress Head: Normocephalic, atraumatic Eyes: Pupils equally round and reactive to light bilaterally, EOM intact, sclera and conjunctive clear, no discharge, lids normal Ears: TMs intact and clear, ear canals clear, no drainage, grossly hearing normal. Nose: Nares patent, no discharge, no inflammation, no sinus tenderness. Mouth: Oral pharynx mildly red without lesions or masses, good dentition, MMM. Neck: Supple, trachea midline, no enlargement of anterior or posterior cervical nodes, no thyroid masses or goiter palpable. Cardio: Regular rate and rhythm, s1 and s2 normal, no murmur appreciated. Resp: Clear to auscultation bilaterally, no rhonchi, rales, wheezing or rubs Course Course Emergency Course: Portions of this record may have been created with voice recognition software. Level of Care: Express Care Visit Vital Signs Vital signs: Vital Signs Temperature 36.2 C L 10/03/24 18:38 Pulse Rate 80 10/03/24 18:38 Respiratory Rate 16 10/03/24 18:38 Blood Pressure 149/102 H 10/03/24 18:38 Pulse Oximetry 99 10/03/24 18:38 Oxygen Delivery Room Air 10/03/24 18:38 Temperature 36.2 C L 10/03/24 18:38 Pulse Rate 80 10/03/24 18:38 Respiratory Rate 16 10/03/24 18:38 Blood Pressure 161/107 H 10/03/24 18:44 Pulse Oximetry 99 10/03/24 18:38 Oxygen Delivery Room Air 10/03/24 18:38 Vital signs reviewed MDM - URI/Sore Throat MDM Narrative Medical decision making narrative: At the time of visit patient is resting comfortably on the exam table. Patient appears to be nontoxic. Labs: Strep test was negative in the clinic today. We will send strep for culture. Plan: I suspect patient has viral pharyngitis. Strep test was negative. Centor criteria 2/4. Supportive measures were discussed with the patient and they voiced understanding discharge instructions and agrees to treatment plan. Return precautions reviewed Differential Diagnosis Differential diagnosis: Likely upper respiratory infection, otitis media, sinusitis, viral infection, bronchitis, influenza, pharyngitis and other (COVID) Lab Data Labs: Lab Results 10/03/24 Range/Units 18:49 POC Grp A Strep Screen Negative (Negative) Discharge Plan Discharge Clinical Impression: Pharyngitis Qualifiers: Pharyngitis/tonsillitis etiology: unspecified etiology Qualified Code(s): J02.9 - Acute pharyngitis, unspecified Patient Disposition: Home Condition: Stable Instructions: Antibiotic Form, Pharyngitis (ED) Additional Instructions: Strep test was negative in the clinic today. We will send strep for culture and if this comes back positive we will contact him place you on antibiotics at that time. Increase fluids and stay well hydrated Tylenol/motrin for pain/fever Flonase and OTC antihistamines as directed Vicks vapor rub to open sinuses Sinus rinses for congestion Cepacol spray, cough drops, throat lozenges, warm tea with honey/lemon, gargle salt water to soothe throat BRAT diet for diarrhea Clear liquids x 24 hours then advance as tolerated for nausea/vomiting Go to the ED if you develop a worsening in your condition- high fever not controlled by Tylenol or Motrin, dehydration, weakness, lethargy, shortness of breath, or chest pain. Follow up with your PCP in 3-5 days if symptoms persist. You have an elevated blood pressure in the clinic today and I recommend follow-up with primary care physician to have this reevaluated within the next week if symptoms persist. [place] Heart guidelines state that normal blood pressure is 120/80 or less. Anything over 120/80 is considered elevated and should be monitored. You may need to decrease you salt intake and eat a heart healthy diet to help lower you blood pressure, other treatments would include decreasing stress, weight loss, stop caffeine, and quit smoking. Your primary care provider can determine whether you need to start antihypertensive medications. Untreated high blood pressure can cause dizziness, headaches, visual changes, blindness, kidney failure, stroke, heart attack, and male impotence. Patient Language: Setswana Prescriptions: No Action meloxicam 15 mg tablet See Rx Instructions .ROUTE .COMPLEX Qty: 90 3RF Dose Instruction: TAKE 1/2 TO 1 TABLET BY MOUTH DAILY NEEDED FOR PAIN Rx Instructions: TAKE 1/2 TO 1 TABLET BY MOUTH DAILY NEEDED FOR PAIN lisinopril 10 mg tablet See Rx Instructions .ROUTE .COMPLEX Qty: 90 1RF Dose Instruction: TAKE 1 TABLET BY MOUTH EVERY DAY Rx Instructions: TAKE 1 TABLET BY MOUTH EVERY DAY pregabalin 50 mg capsule 50 mg PO BID Qty: 60 2RF Follow-up/Referrals: Fitz Martínez MD [Primary Care Provider] - Time of Disposition: 18:48 Quality NIHSS Nursing Documentation ED NIHSS nursing documentation: reviewed/agree
[2024-10-03 18:38] VITALS: BP 149/102; PULSE 80; RESP 16; TEMP 36.2; O2SAT 99
[2024-10-03 18:44] VITALS: BP 161/107
[2024-10-03 18:50] LABS: EDSTREPNEGPOS1 Negative (Negative)
== END 2024-10-03 18:51 | disposition home or self-care (01) ==
PROVIDERS: Emergency Provider Nurse Practitioner Family; PCP Family Medicine Adolescent Medicine
DX: J02.9 Acute pharyngitis, unspecified (principal); I10 Essential (primary) hypertension
CPT/HCPCS: 87081; 87880; 99213; G0463

== ENCOUNTER 2025-03-01 12:38 | Emergency (ER) | payer OTHER, SELFPAY ==
--- OUTSIDE RECORDS SUMMARY | 2025-03-01 12:41 | XMS_ITS | Clinical Summary ---
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
--- OUTSIDE RECORDS SUMMARY | 2025-03-01 12:41 | XMS_ITS | Clinical Summary ---
Author Organization [facility] [employer] Address [address] [place] [address] Care Team Providers Care Tag Writer Name Role Phone Fitz Martínez MD Primary Care Provider + Source Comments [facility] Affiliates and Associated Physician Practices is amultiple site organization consisting of ambulatory clinics and hospital sitesin [place], [place], [place] and [place]. This disclosure is being madepursuant to the Care Everywhere program and may not contain all information available regarding this patient. Last updated 18.[facility] [employer] Allergies No known active allergies Medications * Be aware that medications may not be up to date on this document. Alwaysverify current medications with the patient. lisinopril (Prinivil; Zestril) 10 MG tablet Take 1 (one) tablet by mouth once daily 10/07/2023 Active meloxicam (Mobic) 15 MG tablet TAKE 1/2 TO 1 TABLET BY MOUTH DAILY NEEDED FOR PAIN 08/16/2023 Active pregabalin (Lyrica) 50 MG capsule Take 1 (one) capsule by mouth 2 times daily 06/26/2024 Active cetirizine (ZyrTEC) 5 MG tablet Take 1 (one) tablet by mouth once daily Active Active Problems Problem Noted Date Diagnosed Date Perineal pain 05/11/2023 Social History Tobacco Use Types Packs/Day Years [...] Date Last Done Comments LIPID TESTING 1981 HIV SCREENING 1996 HEPATITIS C SCREENING 10/18/1999 DTAP/TDAP/TD VACCINES (1 - Tdap) 2000 HEPATITIS B VACCINE (1 of 3 - 19+ 3-dose series) 2000 HPV VACCINE (1 - 3-dose SCDM series) 2008 SCREENING FOR DIABETES 10/31/2023 COVID-19 VACCINE (3 - 2024-2 6 season) 2024 08/26/2020, 08/03/2020 INFLUENZA VACCINE (#1) 2024 MAMMOGRAM 10/11/2025 10/12/2023, 10/12/2023 ZOSTER VACCINE (1 of 2) 10/23/2031 DEPRESSION [...] this topic Medical Devices Implanted Type Area Electronic Assembly Device Identifier Shelf Expiration Date Model / Serial / Lot Impl Uro Bulkamid Bulk Ureth Strl Lf Implanted:Qty: 1 on 12/29/2023 by Bertram Painting MD at [facility] N/A: Urethra [email or web address] 06/22/2025 [id number] / / [id number] Sys Ureth Supp Arian Lynx Adv Trnvg Implanted:Qty: 1 on 08/16/2024 by Bertram Painting MD at [facility] N/A: Urethra [employer] 07/12/2026 [id number] / / [id number] Insurance [facility] * Guarantor: JANUARY PALMA Account Type Relation to Patient Date of Phone Billing Address Personal/Family [address] [place] [address] * Guarantor: JANUARY PALMA Account Type Relation to Patient Date of Phone Billing Address Personal/Family [address] [place] [address] * Guarantor: JANUARY PALMA Account Type Relation to Patient Date of Phone Billing Address Personal/Family [address] [place] [address] [facility] [address] [place] [address] [facility] Care Teams Tag Writer Relationship Specialty Start Date End Date Fitz Martínez MD [address] [address] PCP - General 12/04/18
[2025-03-01 12:51] VITALS: BP 160/111; PULSE 78; RESP 16; TEMP 36.7; O2SAT 99
--- NOTE | 2025-03-01 13:10 | ED_ITS ---
HPI - URI/Sore Throat General Chief Complaint: Upper Respiratory Infection Stated Complaint: strep Source: patient Mode of arrival: ambulatory Limitations: no limitations History of Present Illness HPI Narrative: this is a 44-year-old female patient presents to the urgent care with complaint of harsh cough, characterized by marking for the last 2 weeks. Patient states especially worse at night. She denies any fever or chills. She states that her throat is sore times coughing. She is concerned that maybe she has strep. Her 4-year-old was diagnosed with strep and has been on antibiotics for 4 days. she has not been taking otc medication the last two days. no shortness of breath, chest pain, N/V/D or distress noted. MD elicited complaint: cough, sore throat and rhinorrhea Onset (ago): week(s) (2) Consistency: intermittent Severity: moderate Description of mucous: clear Able to tolerate fluids by mouth: Yes Exacerbating factors: nothing Relieving factors: nothing Context: sick contacts Associated symptoms: denies other symptoms Treatments prior to arrival: none Related Data Allergies Allergy/AdvReac Type Severity Reaction Status Date / Time duloxetine (From Cymbalta) AdvReac Mild Gastrointestinal Verified 03/01/25 12:53 Upset Review of Systems Review of Systems: All systems reviewed & are unremarkable except as noted in HPI and below PMFSH Past Medical History Medical History Anemia Hypertension IUP (intrauterine ), incidental Surgical History Surgical History History of dilatation and curettage x3 History of hysterectomy H/O laparoscopy Family History Family History Father Hypertension Other Alcoholism Depression Social History Social History (Updated 12/18/24 @ 08:17 by Angelique Haji [employer]) Second hand tobacco smoke exposure: No Alcohol intake: current Drinks per week: 1 Substance use: never Substance use type: does not use Do You Feel Safe in your Home?: Yes Lack of Transportation: No Lack of Food: Never True Current Housing: I Have Housing Concerned About Future Housing: No Difficulty Paying Gas/Electric Bills: No Difficulty Paying for Meds: No Currently Unemployed: No Education: Decline to Answer Difficulty w/ Childcare or Family Care: No Living arrangements: with family Spiritual care concerns: No Exam Const: General: healthy appearing and no acute distress Nutritional Appearance: well nourished Orientation/consciousness: patient oriented x3 Limitations: no limitations HENMT: Head: normal to inspection Ears: external ears normal Face/Nose/Sinus: Normal external nose present Face and sinus: normal facial exam Mouth: Yes Normal oral and palatal mucosa present Teeth and gingiva: dentition normal Throat: posterior oropharynx normal Eyes: Conjunctivae: conjunctivae normal Pupils: Equal, round and reactive pupils present Neck: Neck: normal visual inspection and no lymphadenopathy Chest: Chest palpation & inspection: normal inspection of the chest Resp: Effort & Inspection: normal respiratory effort Auscultation: clear to auscultation bilaterally Other: harsh barking cough noted on exam. Cardio: Rate: regular rate Rhythm: regular rhythm GI: Inspection: distended GI Palp: Yes Soft to palpation Auscultation: normal bowel sounds Back/Spine/Pelvis: Back: no CVA tenderness Skin: General skin exam: normal color Rashes: no rashes Neuro: General: patient oriented x3 Extrem: General: normal to inspection, no clubbing, cyanosis or edema and no pedal edema Psych: Mental Status: mental status grossly normal Affect: normal affect Attitude: cooperative Course Course Emergency Course: this is a 44-year-old female patient presents to the urgent care with complaint of harsh cough, characterized by marking for the last 2 weeks. Patient states especially worse at night. She denies any fever or chills. She states that her throat is sore times coughing. She is concerned that maybe she has strep. Her 4-year-old was diagnosed with strep and has been on antibiotics for 4 days. she has not been taking otc medication the last two days. no shortness of breath, chest pain, N/V/D or distress noted. vitals stable rapid strep swab completed and noted negative. educated on treatment options and exam findings. discussed symptomatic management and follow up. rest. increased fluid. continue with cough and cold medication as package instructs. continue with prednisone as prescribed symptom management as instructed - vabor rub, vaporizor, cough drops, warm fluids, honey, and cough cold medication. follow up with your Primary care provider next 2-3 days for further evaluation exam. return to the urgent care or emergency department any worrisome sign or symptom. Level of Care: Express Care Visit Vital Signs Vital signs: Vital Signs Temperature 98.1 F 03/01/25 12:51 Pulse Rate 78 03/01/25 12:51 Respiratory Rate 16 03/01/25 12:51 Blood Pressure 160/111 H 03/01/25 12:51 Pulse Oximetry 99 03/01/25 12:51 Oxygen Delivery Room Air 03/01/25 12:51 Temperature 98.1 F 03/01/25 12:51 Pulse Rate 78 03/01/25 12:51 Respiratory Rate 16 03/01/25 12:51 Blood Pressure 160/111 H 03/01/25 12:51 Pulse Oximetry 99 03/01/25 12:51 Oxygen Delivery Room Air 03/01/25 12:51 MDM - URI/Sore Throat MDM Narrative Medical decision making narrative: this is a 44-year-old female patient presents to the urgent care with complaint of harsh cough, characterized by marking for the last 2 weeks. Patient states especially worse at night. She denies any fever or chills. She states that her throat is sore times coughing. She is concerned that maybe she has strep. Her 4-year-old was diagnosed with strep and has been on antibiotics for 4 days. she has not been taking otc medication the last two days. no shortness of breath, chest pain, N/V/D or distress noted. vitals stable rapid strep swab completed and noted negative. educated on treatment options and exam findings. discussed symptomatic manag ement and follow up. rest. increased fluid. continue with cough and cold medication as package instructs. continue with prednisone as prescribed symptom management as instructed - vabor rub, vaporizor, cough drops, warm fluids, honey, and cough cold medication. follow up with your Primary care provider next 2-3 days for further evaluation exam. return to the urgent care or emergency department any worrisome sign or symptom. Differential Diagnosis Differential diagnosis: Likely upper respiratory infection, sinusitis, viral infection and pharyngitis Medical Records Attestation: I reviewed the patient's medical records. Lab Data Attestation: I reviewed the patient's lab results. Labs: Lab Results 03/01/25 Range/Units 13:33 POC Grp A Strep Screen Negative (Negative) Discharge Plan Discharge Clinical Impression: Upper respiratory infection Patient Disposition: Home Condition: Stable Instructions: Antibiotic Form Additional Instructions: rest increased fluids continue with cough and cold medication as package instructs continue with prednisone as prescribed symptom management as instructed - vabor rub, vaporizor, cough drops, warm fluids, honey, and cough cold medication follow up with your Primary care provider next 2-3 days for further evaluation exam return to the urgent care or emergency department any worrisome sign or symptom Patient Language: Azeri Prescriptions: New prednisone 20 mg tablet 20 mg PO BID 7 Days Qty: 14 0RF No Action escitalopram oxalate 10 mg tablet 10 mg PO DAILY Qty: 30 2RF meloxicam 15 mg tablet See Rx Instructions .ROUTE .COMPLEX Qty: 90 3RF Dose Instruction: TAKE 1/2 TO 1 TABLET BY MOUTH DAILY NEEDED FOR PAIN Rx Instructions: TAKE 1/2 TO 1 TABLET BY MOUTH DAILY NEEDED FOR PAIN pregabalin 50 mg capsule 50 mg PO BID Qty: 60 4RF lisinopril 10 mg tablet See Rx Instructions .ROUTE .COMPLEX Qty: 90 1RF Dose Instruction: TAKE 1 TABLET BY MOUTH EVERY DAY Rx Instructions: TAKE 1 TABLET BY MOUTH EVERY DAY Follow-up/Referrals: Negro Holliday DO [Primary Care Provider, [facility]] Time of Disposition: 13:20
[2025-03-01 13:35] LABS: EDSTREPNEGPOS1 Negative (Negative)
== END 2025-03-01 13:25 | disposition home or self-care (01) ==
PROVIDERS: Emergency Provider Nurse Practitioner Family; PCP Family Medicine
DX: J06.9 Acute upper respiratory infection, unspecified (principal); I10 Essential (primary) hypertension
CPT/HCPCS: 87880; 99213; G0463